=== PATIENT | female | born 1940 | race Caucasian/White ===

== ENCOUNTER 2017-03-27 18:52 | Inpatient (IN) | payer MEDICARE ==
[2017-03-27 20:20] LABS: BASOPHILS 0.3 % (0.0-2.0); EOSINOPHILS 2.1 % (0.0-6.0); EOSINOPHILS# 0.2 X 10^3uL (0.0-0.4); HEMATOCRIT 36.9 % (36.0-48.0); HEMOGLOBIN 12.1 g/dL (12.0-16.0); LYMPHOCYTES 7.8 % (20.0-40.0); LYMPHOCYTES# 0.8 X 10^3uL (0.8-3.8); MEAN CELL VOLUME 82.3 fL (80.0-100.0); MEAN CORPUS. HGB CONCENTRATION 32.8 g/dL (32.0-36.0); MEAN PLATELET VOLUME 6.7 fL (7.4-10.4); MONOCYTES 5.7 % (2.0-10.0); MONOCYTES# 0.6 X 10^3uL (0.2-1.0); NEUTROPHILS 84.1 % (54.0-75.0); NEUTROPHILS# 8.7 X 10^3uL (2.6-6.7); PLATELET COUNT 520 X 10^3uL (130-440); RED BLOOD COUNT 4.49 X 10^6uL (4.20-6.10); RED CELL DISTRIBUTION WIDTH 13.3 % (11.5-14.5); WHITE BLOOD COUNT 10.3 X 10^3uL (3.9-10.7)
[2017-03-27] MEDS ORDERED: ceFAZolin 1 GM/10 ML VIAL ONE (20:27)
[2017-03-27] MEDS ORDERED: NORMAL SALINE ADDVANTAGE 100 ML IV ONE (20:29)
[2017-03-27 20:48] LABS: ALBUMIN 3.1 g/dL (3.5-5.0); ALKALINE PHOSPHATASE 52 U/L (38-126); ALT 27 U/L (9-52); AST 13 U/L (14-36); BILIRUBIN, TOTAL 0.3 mg/dL (0.2-1.3); BLOOD UREA NITROGEN 11 mg/dL (7-17); CALCIUM 8.7 mg/dL (8.4-10.2); CHLORIDE 100 mmol/L (98-107); CREATININE 0.5 mg/dL (0.5-1.0); EST GLOMERULAR FILTRATION RATE > 60 mL/min; GLUCOSE 92 mg/dL (70-100); POTASSIUM 4.4 mmol/L (3.5-5.1); SODIUM 133 mmol/L (137-145); TOTAL PROTEIN 5.9 g/dL (6.3-8.2)
[2017-03-27] MEDS ORDERED: HOME MEDICATION LIST NEEDED 1 EA EACH MISC ONE (20:48)
--- NOTE | 2017-03-27 21:43 | ER PHYSICIAN DOCUMENTATION ---
Physician Documentation [facility] Name:Yayo Prince Age:76 yrs Sex:Female :1940 Arrival Date:03/27/2017 Time:18:52 Bed1 Private MD: Rahul Siddiqui Disposition: 03/27/17 20:45 Admit ordered for Sincere Pimentel. Preliminary diagnosis are Cellulitis of Leg, Dependent Edema, Rheumatoid Arthritis. - Bed requested for Medical/Surgical. - Condition is Serious. - Problem is an acute exacerbation. - Symptoms have improved. 23 HR OBS No HPI: 03/27 20:40 This 76 yrs old Female presents to ER via Private Vehicle with complaints of sc erythema right leg. 20:40 The patient presents with pain, swelling, tenderness. The complaints affect the right sc leg and right calf. Context: The problem was sustained at home, resulted from chronic edema and difficult healing ulcers, increased weeping through skin and sudden onset today of warm erythema and tenderness. Onset: The symptom(s)/episode began/occurred today. Associated signs and symptoms: Pertinent positives: warmth, weakness. Treatment prior to arrival includes: no previous treatment. Historical: - Allergies: ACETAMINOPHEN; Arava; Ciprofloxacin; - Home Meds: 1. gabapentin 100 mg oral cap 3 caps 3 times per day 2. tramadol 50 mg oral tab 1 tab Q8H as needed 3. ketoprofen Oral 4. Klor-Con M20 20 mEq oral TbTQ 1 tab once daily 5. mirtazapine 15 mg oral tab 1 tab once daily 6. folic acid 1 mg oral tab 1 tab once daily 7. prednisone 2.5 mg oral tab 1 tab every 2 days 8. melatonin 2.5 mg oral chew - PMHx: THYROID PROBLEM; BLADDER PROLAPSE; CELIAC DISEASE; GLAUCOMA; NEUROPATHY; DEPRESSION; HYPOKALEMIA; DEMENTIA; GERD; OSTEOPENIA; RHEUMATOID ARTHRITIS; SJOGRENS DISEASE; - PSHx: Appendectomy; Hysterectomy; CATARACT; - Tetanus: unknown. - Ebola Screening: : Patient negative for fever greater than or equal to 101.5 degrees Fahrenheit, and additional compatible Ebola Virus Disease symptoms. Patient denies exposure to infectious person. Patient denies travel to an Ebola-affected area in the 21 days before illness onset. No symptoms or risks identified at this time. . - Immunization history: Flu Vaccine >1 year. - Social history: Smoking status: Patient states was never smoker of tobacco. ROS: 20:42 Constitutional: Negative for fever, chills, and weight loss. sc Eyes: Negative for injury, pain, redness, and discharge. ENT: Negative for injury, pain, and discharge. Neck: Negative for injury, pain, and swelling. Cardiovascular: Negative for chest pain, palpitations, and edema. Respiratory: Negative for shortness of breath, cough, wheezing, and pleuritic chest pain. Abdomen/GI: Negative for abdominal pain, nausea, vomiting, diarrhea, and constipation. Back: Negative for injury and pain. : Negative for injury, bleeding, discharge, and swelling. 20:42 Neuro: Negative for headache, weakness, numbness, tingling, and seizure. sc 20:42 MS/extremity: Positive for erythema, swelling, tenderness. 20:42 Skin: Positive for sacral ulcer as well. 20:42 Allergy/Immunology: Positive for joint pain. Exam: Head/Face: Normocephalic, atraumatic. Eyes: Pupils equal round and reactive to light, extra-ocular motions intact. Lids and lashes normal. Conjunctiva and sclera are non-icteric and not injected. Cornea within normal limits. Periorbital areas with no swelling, redness, or edema. Cardiovascular: Regular rate and rhythm with a normal S1 and S2. No gallops, murmurs, or rubs. Normal PMI, no JVD. No pulse deficits. Respiratory: Lungs have equal breath sounds bilaterally, clear to auscultation and percussion. No rales, rhonchi or wheezes noted. No increased work of breathing, no retractions or nasal flaring. Back: No spinal tenderness. No costovertebral tenderness. Full range of motion. 20:43 Neuro: Awake and alert, GCS 15, oriented to person, place, time, and situation. sc Cranial nerves II-XII grossly intact. Motor strength 5/5 in all extremities. Sensory grossly intact. Cerebellar exam normal. Normal gait. 20:43 Constitutional: The patient appears frail, lethargic. 20:43 Musculoskeletal/extremity: Extremities: grossly normal except: erythema, swelling, tenderness, swelling, tenderness, edema and weeping, ROM: intact in all extremities, Circulation is intact in all extremities. Sensation intact. Vital Signs: 19:07 BP 124 / 73; Pulse 91; Resp 18; Temp 98.1; Pulse Ox 96% on R/A; sc1 21:10 BP 132 / 82; Pulse 80; Resp 17; Pulse Ox 97% on R/A; Pain 6/10; rh 21:41 BP 125 / 75; Pulse 77; Resp 17; Pulse Ox 98% on R/A; Pain 9/10; rh MDM: 19:23 Patient medically screened. tn 20:44 Differential diagnosis: cellulitis and sacral ulcer and hypoalbuminemia and chronic sc severe RA. Data reviewed: vital signs, nurses notes, old medical records, lab test result(s), and as a result, I will admit patient, administer antibiotics. Counseling: I had a detailed discussion with the patient and/or guardian regarding: the historical points, exam findings, and any diagnostic results supporting the discharge/admit diagnosis, lab results, the need for further work-up and treatment in the hospital. 03/27 20:30 Order name: CBC AUTO DIF, MDIF/RMOR IF IND; Complete Time: 20:51 [facility] 03/27 20:39 Interpretation: Normal Except: NEUTROPHILS 84.1. tn 03/27 20:49 Order name: BASIC METABOLIC PANEL; Complete Time: 20:51 [facility] 03/27 20:51 Interpretation: Normal Except: SODIUM 133. tn 03/27 20:49 Order name: HEPATIC PANEL; Complete Time: 20:51 [facility] 03/27 20:51 Interpretation: Abnormal: ALBUMIN 3.1; TOTAL PROTEIN 5.9. tn 03/28 08:08 Order name: BASIC METABOLIC PANEL [facility] 03/28 08:08 Order name: IRON PANEL [facility] 03/28 08:13 Order name: CBC AUTO DIF, MDIF/RMOR IF IND [facility] 03/28 20:10 Order name: BLOOD CULTURE [facility] 03/28 20:10 Order name: BLOOD CULTURE [facility] 03/29 06:59 Order name: COMPREHENSIVE METABOLIC PANEL [facility] 03/29 06:59 Order name: PREALBUMIN [facility] 03/29 08:45 Order name: OCCULT BLOOD (1-3 SAMPLES) [facility] 03/29 10:06 Order name: CBC AUTO DIF, MDIF/RMOR IF IND [facility] 03/29 10:06 Order name: COMPREHENSIVE METABOLIC PANEL [facility] 03/29 10:06 Order name: PREALBUMIN [facility] 05/03 10:06 Order name: C-REACTIVE PROTEIN [facility] 03/29 10:18 Order name: ERYTHROCYTE SEDIMENTATION RATE [facility] 03/27 19:38 Order name: Iv Saline Lock; Complete Time: 20:04 tn 03/27 19:38 Order name: Urine Dip; Complete Time: 21:09 tn 03/27 20:56 Order name: ORTHO: 6" Rob Wrap; Complete Time: 21:09 tn Dispensed Medications: 20:55 Drug: ceFAZolin 1 grams; Route: IVPB; Site: left antecubital; 21:30 Follow up: IV Status: Completed infusion; IV Intake: 100ml 21:15 Drug: traMADol 50 mg; Route: PO; 21:40 Follow up: Response: No adverse reaction 21:41 Drug: Toradol 15 mg; Route: IVP; Site: left antecubital; 21:41 Follow up: Response: Medication administered at discharge. Point of Care Testing: Urine Dip: 21:02 pH: 7.0; ; Specific [place]: 1.020; Ketones: Negative; Glucose: Negative; Protein: em1 Negative; Leukocytes: Negative; Nitrite: Negative ; Blood: Negative; Bilirubin: Negative ; Urobilinogen: Normal Signatures: Patrica Garcia RN RN [facility] [place] Rahul Marie MD MD [facility] CountyPrabha browne
--- NOTE | 2017-03-27 21:43 | ER NURSING DOCUMENTATION ---
Nurse's Notes [facility] Name:Yayo Prince Age:76 yrs Sex:Female :1940 Arrival Date:03/27/2017 Time:18:52 Bed1 Private MD: Diagnosis:Cellulitis of Leg;Dependent Edema;Rheumatoid Arthritis Presentation: 03/27 19:00 Presenting complaint: Patient states: increasing redness and drainage from her right sc1 lower leg. This leg is being treated by a home health agency. There was a dressing on the wound and pt. has 3+ pitting edema to her right leg some redness over the lower half with ulcers that are not draining at this point. Transition of care: Home. Complicating Factors: There are no complicating factors for this patient. Notified ED Physician of Dr. Marie notified. 19:00 Acuity: MARTHA 3 sc1 19:00 Method Of Arrival: Private Vehicle [facility] [place] Triage Assessment: 19:07 General: Appears in no apparent distress, well developed, well nourished, well groomed, wv1 Behavior is cooperative, listless. Pain: Complains of pain in right calf and right Achilles. Historical: - Allergies: ACETAMINOPHEN; Arava; Ciprofloxacin; - Home Meds: 1. gabapentin 100 mg oral cap 3 caps 3 times per day 2. tramadol 50 mg oral tab 1 tab Q8H as needed 3. ketoprofen Oral 4. Klor-Con M20 20 mEq oral TbTQ 1 tab once daily 5. mirtazapine 15 mg oral tab 1 tab once daily 6. folic acid 1 mg oral tab 1 tab once daily 7. prednisone 2.5 mg oral tab 1 tab every 2 days 8. melatonin 2.5 mg oral chew - PMHx: THYROID PROBLEM; BLADDER PROLAPSE; CELIAC DISEASE; GLAUCOMA; NEUROPATHY; DEPRESSION; HYPOKALEMIA; DEMENTIA; GERD; OSTEOPENIA; RHEUMATOID ARTHRITIS; SJOGRENS DISEASE; - PSHx: Appendectomy; Hysterectomy; CATARACT; - Tetanus: unknown. - Ebola Screening: : Patient negative for fever greater than or equal to 101.5 degrees Fahrenheit, and additional compatible Ebola Virus Disease symptoms. Patient denies exposure to infectious person. Patient denies travel to an Ebola-affected area in the 21 days before illness onset. No symptoms or risks identified at this time. . - Immunization history: Flu Vaccine >1 year. - Social history: Smoking status: Patient states was never smoker of tobacco. Screenin:09 Infectious Disease Risk None. Abuse screen: Denies threats or abuse. Nutritional sc1 screening: No deficits noted. Vital Signs: 19:07 BP 124 / 73; Pulse 91; Resp 18; Temp 98.1; Pulse Ox 96% on R/A; sc1 21:10 BP 132 / 82; Pulse 80; Resp 17; Pulse Ox 97% on R/A; Pain 6/10; rh 21:41 BP 125 / 75; Pulse 77; Resp 17; Pulse Ox 98% on R/A; Pain 9/10; rh ED Course: 18:57 Patient arrived in ED. honorio 18:59 Patrica Garcia, RN is Primary Nurse. sc1 19:02 Triage completed. sc1 19:08 Rahul Marie MD is Attending Physician. wv 19:08 Notified ED Physician of patient's arrival and chief complaint. Dr. Marie notified. Arm sc1 band placed on Bed in low position Call Light in Reach Gowned HOB Elevated Side rails up x1. 19:31 Valuables Remains with patient. rh 19:57 Inserted saline lock: 20 gauge in left antecubital area and blood collected. em1 20:05 Accessed BLOOD CULTURES TAKEN ON LEFT AC VIA 20G IV. em1 20:06 Inserted 22G BUTTERFLY USED TO DRAW 2ND SET BLOOD CULTURES FROM RIGHT AC. DISCONTINUED em1 AFTER DRAW. 20:45 Sincere Pimentel MD is Admitting Physician. wv 20:45 Quick cath inserted 16 Fr. Specimen obtained. Returned clear yellow urine. Patient rh tolerated well. Administered Medications: 20:55 Drug: ceFAZolin 1 grams; Route: IVPB; Site: left antecubital; rh 21:30 Follow up: IV Status: Completed infusion; IV Intake: 100ml rh 21:15 Drug: traMADol 50 mg; Route: PO; rh 21:40 Follow up: Response: No adverse reaction rh 21:41 Drug: Toradol 15 mg; Route: IVP; Site: left antecubital; rh 21:41 Follow up: Response: Medication administered at discharge. Point of Care Testing: Urine Dip: 21:02 pH: 7.0; ; Specific [place]: 1.020; Ketones: Negative; Glucose: Negative; Protein: em1 Negative; Leukocytes: Negative; Nitrite: Negative ; Blood: Negative; Bilirubin: Negative ; Urobilinogen: Normal Intake: 21:30 IV: 100ml; Total: 100ml. Outcome: 20:45 Decision to Admit by Provider. wv 21:41 Admitted to Med/surg accompanied by nurse, via stretcher, with chart. 21:41 Condition: stable 21:41 Discharge Assessment: Patient awake and alert. 21:41 Discharge instructions given to patient, family, Instructed on need to admit 21:42 Patient left the ED. Signatures: Patrica Garcia RN RN sc1 Rahul Marie MD MD sc Brittney Victoria, Jose R Odell honorio [employer], [employer] em1 Prabha Mckoy
[2017-03-27] MEDS ORDERED: KETOROLAC TROMETHAMINE 30 MG/ML VIAL ONE (21:50)
[2017-03-27] MEDS ORDERED: traMADol HCL 50 MG TABLET PO ONE (23:00)
[2017-03-27] MEDS: MELATONIN 3 MG TABLET PO SCH ×2 (23:11→23:36)
[2017-03-27] MEDS: MIRTAZAPINE 15 MG TAB PO SCH ×2 (23:12→23:36)
[2017-03-27] MEDS: GABAPENTIN 300 MG CAPSULE PO SCH ×2 (23:12→23:36)
[2017-03-27] MEDS: predniSONE 10 MG TABLET PO SCH (23:12)
[2017-03-28] MEDS: traMADol HCL 50 MG TABLET PO PRN ×2 (04:03→10:25)
[2017-03-28] MEDS: FENTANYL 100 MCG/2 ML VIAL IV PRN ×2 (07:38→13:47)
[2017-03-28] MEDS ORDERED: NORMAL SALINE 1,000 ML IV SCH (08:00)
[2017-03-28 08:05] LABS: BLOOD UREA NITROGEN 9 mg/dL (7-17); CALCIUM 8.4 mg/dL (8.4-10.2); CHLORIDE 105 mmol/L (98-107); CREATININE 0.4 mg/dL (0.5-1.0); EST GLOMERULAR FILTRATION RATE > 60 mL/min; GLUCOSE 110 mg/dL (70-100); IRON 15 ug/dL (37-170); POTASSIUM 4.4 mmol/L (3.5-5.1); SODIUM 139 mmol/L (137-145)
[2017-03-28 08:11] LABS: BASOPHILS 0.1 % (0.0-2.0); EOSINOPHILS 0.1 % (0.0-6.0); HEMOGLOBIN 12.3 g/dL (12.0-16.0); LYMPHOCYTES 5.4 % (20.0-40.0); LYMPHOCYTES# 0.5 X 10^3uL (0.8-3.8); MEAN CELL VOLUME 82.6 fL (80.0-100.0); MEAN CORPUS. HGB CONCENTRATION 33.3 g/dL (32.0-36.0); MEAN CORPUSCULAR HEMOGLOBIN 27.5 pg (29.0-35.0); MEAN PLATELET VOLUME 6.8 fL (7.4-10.4); MONOCYTES# 0.3 X 10^3uL (0.2-1.0); NEUTROPHILS# 8.4 X 10^3uL (2.6-6.7); PLATELET COUNT 527 X 10^3uL (130-440); RED BLOOD COUNT 4.48 X 10^6uL (4.20-6.10); RED CELL DISTRIBUTION WIDTH 13.6 % (11.5-14.5); WHITE BLOOD COUNT 9.2 X 10^3uL (3.9-10.7)
[2017-03-28 08:12] LABS: TOTAL IRON BINDING CAPACITY 231 ug/mL (250-400); TRANSFERRIN 155 mg/dL (206-381); TRANSFERRIN SATURATION 6 % (14-50)
[2017-03-28 08:13] LABS: NEUTROPHILS 91.4 % (54.0-75.0)
[2017-03-28] MEDS: FERROUS SULFATE 325 MG TABLET PO SCH (08:58)
[2017-03-28] MEDS: predniSONE 10 MG TABLET PO SCH ×2 (08:58→20:49)
[2017-03-28] MEDS: ENOXAPARIN SODIUM 40 MG/0.4 ML SYR SUBCUT SCH (08:58)
[2017-03-28] MEDS ORDERED: GABAPENTIN 300 MG CAPSULE PO SCH (09:00)
--- NOTE | 2017-03-28 14:10 | HISTORY & PHYSICAL ---
DATE OF ADMISSION: 03/27/17 CHIEF COMPLAINT: Right leg pain. HISTORY OF PRESENT ILLNESS: The patient is a 76-year-old female with multiple chronic medical conditions followed by Dr. Elliott. She has a history of peripheral neuropathy in her bilateral lower extremities with intermittent swelling of the legs and chronic skin breakdown in the setting of protein malnutrition. Over the last few days, she states that her legs have had increased swelling and redness more on the right side than the left, with considerable increase in pain in the right leg diffusely but with more intensity on the posterior lower leg above the ankle. She denies any fevers or chills. She has not had any shaking chills. She has had more difficulty ambulating due to the pain but has not had any recent falls. No spreading or streaking redness. No discharge but some oozing and bleeding from her posterior right lower leg. With difficulty managing at home, she was brought into the emergency department by family yesterday and is now admitted for further evaluation and treatment of cellulitis. She has rheumatoid arthritis and is on prednisone and it sounds like this has recently been increased by her ornament setter to a dose of 10 mg daily. She has not had any recent antibiotics. She has not been recently hospitalized sense a fall resulting in a left femoral neck fracture in 10/2016 with subsequent rehabilitation stay. She has been back at home since November working with home health care. Of note, she suffers from a chronic sacral decubitus ulcer and has been receiving dressing changes with home health care for this, but it does not sound like the focus has been on her lower extremity wounds. She denies any headache or lightheadedness. No confusion per the patient, although she carries the diagnosis of dementia. She denies any chest pain or palpitations. No shortness of breath or cough. No abdominal pain or nausea. She denies any recent diarrhea. She denies any dysuria. She does have lower extremity swelling as indicated above with significant pain. A fair amount of scaling in her bilateral lower extremities and the skin breakdown in the posterior lower leg as above. With regard to management at home, she generally takes tramadol 2 times a day but has been unable to control the pain with this. She was written for a topical compounded cream which she has not been using. She does take gabapentin. Her chart indicates that she takes 300 mg at night although she thinks that she make take this twice per day. In the emergency department, she was found to have significant erythema in bilateral lower extremities, more on the right than the left, with evidence of skin breakdown on the right more than the left. She did not appear to be septic. She was admitted for further evaluation and treatment with IV antibiotics. PAST MEDICAL HISTORY 1. Celiac disease. 2. 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 3. Corneal scarring. 4. Decubitus ulcer of the buttock and sacral region on the left side. 5. Dementia. 6. Depression. 7. Dry eye syndrome. 8. Female bladder prolapse. 9. GERD. 10. 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 11. Hypokalemia. 12. History of keratitis with ulceration in association with rheumatoid arthritis. 13. Osteopenia. 14. Presbycusis. 15. Rheumatoid arthritis. 16. Sjogrens disease. 17. Chronic insomnia. 18. Unintentional weight loss. PAST SURGICAL HISTORY 1. Appendectomy. 2. Hysterectomy. 3. Cataract surgery. 4. Left hip ORIF in 10/2016. ALLERGIES: Acetaminophen with unknown reaction. Arava resulting in unknown reaction. Ciprofloxacin resulting in unknown reaction. MEDICATIONS Vitamin D3 1000 units p.o. daily. Folic acid 1 mg p.o. daily. Gabapentin 300 mg p.o. q.h.s. Compound cream with 20% ketoprofen, 2% baclofen, 2% cyclobenzaprine, 6% gabapentin, 2% lidocaine compounded into cream for use on hands and feet as needed for pain (says she is not using this). KCl 20 mEq p.o. daily. Melatonin 2.5 mg p.o. at bedtime. Mirtazapine 50 mg p.o. at bedtime. Prednisone with chart listing 2.5 mg every other day but the patient stating that she is actually taking 10 mg daily. Tramadol 50 mg p.o. q.8h p.r.n. pain (says she is taking this 2 times a day). SOCIAL HISTORY: Never smoker. No alcohol. No illicit drugs. Lives alone with daughter and son-in-law living near by and helping significantly with her at home. DNR status. FAMILY HISTORY: Significant for rheumatoid arthritis in one cousin, lung cancer and emphysema in her father, hypertension and fibromyalgia in her mother , and hypertension, OCD and alcoholism in her son. REVIEW OF SYSTEMS: Pertinent positives and negatives as above. Remainder are negative. PHYSICAL EXAMINATION VITAL SIGNS: Show a temperature of 36.1, with a blood pressure 154/81, pulse of 82, respirations 16, and she is 93% on room air at rest. GENERAL: Elderly, thin, frail, chronically ill appearing female. Is alert and interactive but very hard of hearing with poor memory. Does demonstrate a lack of understanding of her medication regimen. HEENT: Normocephalic/atraumatic. Sinuses are nontender. Pupils show evidence of prior cataract surgery but are reactive to light bilaterally. Extraocular muscles are intact with full range of motion. Oropharynx shows very dry mucous membranes. No lesions. NECK: Supple without lymphadenopathy or masses. No thyromegaly or nodules. CHEST: Mildly decreased breath sounds throughout with minimal bibasilar rales. No change in tactile fremitus. CARDIAC: Regular rate and rhythm. Soft S4. No S3. Do not hear a murmur. No JVD at 45 degrees. Has trace to 1+ pretibial pitting edema. ABDOMEN: Positive bowel sounds. Soft, nontender, nondistended. No hepatosplenomegaly. BACK: No costovertebral angle tenderness. EXTREMITIES: Acrocyanosis. Bilateral lower extremities are diffusely tender to palpation. I do not feel any cords. SKIN: Scattered ecchymoses. Bilateral lower extremities with considerable scaling diffusely with a large 4 cm eschar with thin eschar overlying the posterior lower leg above the ankle. Some weeping from this with serosanguineous discharge. No fluctuance. Diffusely tender to palpation. She has a small 3 mm eschar along the lateral aspect of her right ankle over the lateral malleolus. Finally, she has a longstanding sacral ulcer just to the left of midline with a 3 mm deep ulceration which appears to have tunneling. LYMPH: No cervical or supraclavicular lymphadenopathy. NEUROLOGIC: The patient is alert and interactive but forgetful. She knows her name and location. She is moving all 4 extremities but weakly. Light touch sensation is intact in face, torso and upper extremities with paresthesias in her bilateral lower extremities below the level of the knees. LABORATORY STUDIES: In the emergency department white blood count was 10.3 with hematocrit of 36.9 with an MCV of 82.3 and a platelet count of 520, 84% neutrophils. Chemistry panel showing a sodium mildly low at 133 with a potassium of 4.4. Her creatinine is 0.5. LFTs are normal with the exception of low protein of 5.9 and low albumin at 3.1. Blood cultures times 2 are pending. ASSESSMENT AND PLAN: 1. Cellulitis, bilateral lower extremities in the setting of immunocompromised. Last hospitalization was in November and no recent antibiotics making MRSA less likely. She does not appear septic. Cultures are ordered and pending. The patient has been started on cefazolin IV, and this is appropriate coverage for initial care. Will follow closely for any evidence of worsening and have a low threshold for broadening coverage considering her immunocompromised complex medical state. Considering degree of inflammation and pain in the setting of rheumatoid arthritis, will increase prednisone to 20 mg b.i.d. for now and plan to taper as she clinically improves. General support with IV fluid, encouraging oral intake of liquids and nutrition. Supplement with Ensure. Wound care consultation. Dressing changes daily. Elevate legs. Gentle compression if tolerated. Further recommendations will depend upon her course. Considering her overall debilitated state, will order for a physical therapy consult as well. With regard to other differential diagnosis items, this does not appear to be CHF decompensation. Doubt DVT with bilateral involvement, with skin breakdown, and with focal areas of erythema. Less likely vasculitis considering acute presentation. For pain management, she does not tolerate acetaminophen. Will continue with tramadol 4 times a day as needed. Fentanyl at very low dose for more severe pain. 2. Right lower extremity wound. See above. 3. Sacral decubitus ulcer. Present on admission. Currently has dressing in place from home health care. Wound care consult has been ordered and will continue with every day to every other day dressing changes. 4. Rheumatoid arthritis. Considerable debilitation in association with this. Physical therapy as above. General supportive care as above. Prednisone burst as above. 5. Sjogrens syndrome. Artificial Tears as needed. General supportive care. 6. Hyponatremia, mild, with evidence of dehydration on examination. Gentle IV fluids. Watch for worsening of edema. 7. Microcytosis with borderline anemia. Reassess in the morning. Check iron studies. 8. Dementia. Current presentation does not appear to be significantly off from her baseline. Follow clinically. 9. Peripheral neuropathy. Contributing to her bilateral lower extremity pain. Continue gabapentin. Other analgesia as above. 10. Vaccine status. The patient is a Jehovahs Witness and it sounds like has generally declined vaccinations. I will defer to her primary care physician Dr. Elliott. He may with to update tetanus status and pneumonia vaccine prior to discharge depending upon negotiation with the patient. 11. Cardiac resuscitation status. DNR. 12. DVT prophylaxis. High risk. Lovenox. 13. Disposition. Anticipate 2-3 days to control infection. Considering debilitating status, may need rehabilitation stay. Copy to Dr. Mcnamara, Rheumatology, [facility]
[2017-03-28] MEDS: MELATONIN 3 MG TABLET PO SCH (20:48)
[2017-03-28] MEDS: GABAPENTIN 300 MG CAPSULE PO SCH (20:49)
[2017-03-28] MEDS ORDERED: MIRTAZAPINE 15 MG TAB PO SCH (21:00)
[2017-03-29 06:46] LABS: A/G RATIO 0.9; ALBUMIN 2.5 g/dL (3.5-5.0); ALKALINE PHOSPHATASE 46 U/L (38-126); ALT 27 U/L (9-52); AST 14 U/L (14-36); BILIRUBIN, TOTAL 0.2 mg/dL (0.2-1.3); BLOOD UREA NITROGEN 15 mg/dL (7-17); CHLORIDE 106 mmol/L (98-107); CREATININE 0.4 mg/dL (0.5-1.0); EST GLOMERULAR FILTRATION RATE > 60 mL/min; GLUCOSE 112 mg/dL (70-100); POTASSIUM 4.1 mmol/L (3.5-5.1); SODIUM 140 mmol/L (137-145); TOTAL PROTEIN 5.3 g/dL (6.3-8.2)
[2017-03-29 06:49] LABS: BASOPHILS 0.1 % (0.0-2.0); EOSINOPHILS 0.1 % (0.0-6.0); HEMATOCRIT 36.5 % (36.0-48.0); HEMOGLOBIN 11.8 g/dL (12.0-16.0); LYMPHOCYTES 4.8 % (20.0-40.0); LYMPHOCYTES# 0.6 X 10^3uL (0.8-3.8); MEAN CELL VOLUME 82.2 fL (80.0-100.0); MEAN CORPUS. HGB CONCENTRATION 32.3 g/dL (32.0-36.0); MEAN CORPUSCULAR HEMOGLOBIN 26.6 pg (29.0-35.0); MONOCYTES 2.8 % (2.0-10.0); MONOCYTES# 0.4 X 10^3uL (0.2-1.0); NEUTROPHILS# 11.8 X 10^3uL (2.6-6.7); PLATELET COUNT 563 X 10^3uL (130-440); RED BLOOD COUNT 4.44 X 10^6uL (4.20-6.10); RED CELL DISTRIBUTION WIDTH 13.6 % (11.5-14.5); WHITE BLOOD COUNT 12.8 X 10^3uL (3.9-10.7)
[2017-03-29 07:02] LABS: NEUTROPHILS 92.2 % (54.0-75.0)
[2017-03-29] MEDS: predniSONE 10 MG TABLET PO SCH (08:46)
[2017-03-29] MEDS: ENOXAPARIN SODIUM 40 MG/0.4 ML SYR SUBCUT SCH (08:46)
[2017-03-29] MEDS: FERROUS SULFATE 325 MG TABLET PO SCH (08:46)
[2017-03-29] MEDS: traMADol HCL 50 MG TABLET PO PRN ×3 (08:46→20:36)
--- NOTE | 2017-03-29 08:53 | PROGRESS NOTE: IM APSO ---
Assessment and Plan - Date of Encounter Date of Encounter: 03/29/17 (1) Axonal sensorimotor neuropathy Status: Chronic Assessment and plan: likely related to vasculitis and now ulceration very suggestive of vasculitis. consider biops (punch and request c/s with Dr. Ponce). In interim increase steroids from stress dose to pulse and check surrogate labs. Anemia of chronic inflammatory dz consistent with this. Trial of topical meds as well for analgesia. Current Visit: Yes (2) Cellulitis Status: Acute Assessment and plan: will continue therapy started by Dr. Pimentel, suspect most of this is vasculitis though Current Visit: Yes (3) Anemia in chronic illness Status: Acute Current Visit: Yes (4) Celiac disease Status: Chronic Current Visit: Yes (5) Rheumatoid arthritis Status: Chronic Current Visit: Yes (6) Weight loss Status: Chronic Current Visit: Yes - Time Spent With Patient Total time spent with greater than 50% in coordination of care (as documented) at patient's floor/unit and/or counseling patient: Greater than 35 minutes IM: PN Subjective General: fatigue, good appetite, no anxiety, no depression, no confusion, no fever, no chills Cardiovascular: no chest pain Respiratory: no cough Gastrointestinal: no abdominal pain, no nausea, no vomiting, no diarrhea, no constipation Musculoskeletal: pain Integumentary: wound Neurological: limb weakness, other (punched out appearing right lateral lower leg and exquisite pain both legs distal to knees to toes, some venous changes and edema) IM: PN Objective Exam - I&O/Vital Signs I&O: Intake & Output 03/28/17 03/29/17 03/29/17 21:59 05:59 13:59 Intake Total 1830 1380 Output Total 1550 225 Balance 280 1155 Weight 45.5 kg 46.5 kg Intake: IV 410 980 Left Forearm 410 980 Oral 1420 400 Output: Urine 1550 225 Other: Urine Appearance Clear Clear Urine Color Yellow Yellow Stool Size Small Stool Characteristics Soft Formed Brown Voiding Method Toilet Toilet # Voids 3 2 # Bowel Movements 2 Vital Signs: Last Vital Signs Temp 36.2 C L 03/29/17 06:25 Pulse 81 03/29/17 06:25 Resp 16 03/29/17 06:25 BP 139/70 03/29/17 06:25 Pulse Ox 94 03/29/17 06:25 Oxygen Delivery Method Room Air - Constitutional General appearance: Present: thin - Head Head exam: Present: atraumatic - Eye Eye exam: Present: EOMI - ENT ENT exam: Present: mucous membranes moist - Neck Neck exam: Present: full ROM. Absent: lymphadenopathy - Respiratory Respiratory exam: Present: CTAB - Cardiovascular Cardiovascular exam: Present: RRR - GI/Abdominal GI/Abdominal exam: Present: normal bowel sounds, soft. Absent: mass, tenderness - Extremities Exam Extremities exam: Present: calf tenderness (exquisite pain legs distal to knees with even light touch), edema (+), tenderness - Neurological Exam Neurological exam: Present: abnormal gait - Skin Skin exam: Present: erythema, other (punched out lesion) - Allied Health Notes Allied health notes reviewed: case management, nursing - Lab Labs: Laboratory Last Values WBC 12.8 X 10^3uL (3.9-10.7) H 03/29/17 06:05 RBC 4.44 X 10^6uL (4.20-6.10) 03/29/17 06:05 Hgb 11.8 g/dL (12.0-16.0) L 03/29/17 06:05 Hct 36.5 % (36.0-48.0) 03/29/17 06:05 MCV 82.2 fL (80.0-100.0) 03/29/17 06:05 MCH 26.6 pg (29.0-35.0) L 03/29/17 06:05 MCHC 32.3 g/dL (32.0-36.0) 03/29/17 06:05 RDW 13.6 % (11.5-14.5) 03/29/17 06:05 Plt Count 563 X 10^3uL (130-440) H 03/29/17 06:05 MPV 7.0 fL (7.4-10.4) L 03/29/17 06:05 Neutrophils % 92.2 % (54.0-75.0) H 03/29/17 06:05 Lymphocytes % 4.8 % (20.0-40.0) L 03/29/17 06:05 Eosinophils % 0.1 % (0.0-6.0) 03/29/17 06:05 Basophils % 0.1 % (0.0-2.0) 03/29/17 06:05 Neutrophils # 11.8 X 10^3uL (2.6-6.7) H 03/29/17 06:05 Lymphocytes # 0.6 X 10^3uL (0.8-3.8) L 03/29/17 06:05 Monocytes 2.8 % (2.0-10.0) 03/29/17 06:05 Monocytes # 0.4 X 10^3uL (0.2-1.0) 03/29/17 06:05 Eosinophils # 0.0 X 10^3uL (0.0-0.4) 03/29/17 06:05 Basophils # 0.0 X 10^3uL (0.0-0.1) 03/29/17 06:05 Sodium 140 mmol/L (137-145) 03/29/17 06:05 Potassium 4.1 mmol/L (3.5-5.1) 03/29/17 06:05 Chloride 106 mmol/L (98-107) 03/29/17 06:05 Carbon Dioxide 26 mmol/L (22-30) 03/29/17 06:05 BUN 15 mg/dL (7-17) D 03/29/17 06:05 Creatinine 0.4 mg/dL (0.5-1.0) L 03/29/17 06:05 GFR Calculation > 60 mL/min 03/29/17 06:05 Glucose 112 mg/dL (70-100) H 03/29/17 06:05 Calcium 8.0 mg/dL (8.4-10.2) L 03/29/17 06:05 Iron 15 ug/dL (37-170) L 03/28/17 07:40 TIBC 231 ug/mL (250-400) L 03/28/17 07:40 Transferrin 155 mg/dL (206-381) L 03/28/17 07:40 Transferrin % Sat 6 % (14-50) L 03/28/17 07:40 Total Bilirubin 0.2 mg/dL (0.2-1.3) 03/29/17 06:05 Direct Bilirubin 0.0 mg/dL (0.0-0.4) 03/27/17 19:59 AST 14 U/L (14-36) 03/29/17 06:05 ALT 27 U/L (9-52) 03/29/17 06:05 Alkaline Phosphatase 46 U/L (38-126) 03/29/17 06:05 Total Protein 5.3 g/dL (6.3-8.2) L 03/29/17 06:05 Albumin 2.5 g/dL (3.5-5.0) L 03/29/17 06:05 Albumin/Globulin Ratio 0.9 03/29/17 06:05 Prealbumin 7.2 mg/dL (17.6-36.0) L 03/29/17 06:05 Quality Questions - VTE Prophylaxis Assessment VTE Present on Admission?: No Patient at risk for venous thromboembolism?: Yes VTE Risk Level: Low Risk Pharmaceutical VTE prophylaxis contraindication reason: N/A- VTE prophylaxsis ordered Mechanical VTE prophylaxis contraindication reason: N/A- VTE prophylaxsis ordered
[2017-03-29 09:44] LABS: C-REACTIVE PROTEIN 44.9 mg/L (<10.0)
[2017-03-29] MEDS ORDERED: LIDOCAINE HCL 1% 20 ML VIAL SUBCUT SCH (09:45)
[2017-03-29] MEDS ORDERED: KETAMINE HCL 500 MG/10 ML VIAL IV SCH (10:00)
[2017-03-29] MEDS ORDERED: METHYLPREDNISOLONE SOD IV SCH (10:00)
[2017-03-29] MEDS ORDERED: NORMAL SALINE MINI IV SCH (10:00)
[2017-03-29] MEDS: NORMAL SALINE MINI IV SCH (10:05)
[2017-03-29] MEDS: METHYLPREDNISOLONE SOD IV SCH (10:05)
[2017-03-29 10:18] LABS: ERYTHROCYTE SEDIMENTATION RATE 24 MM/HR (0-20)
[2017-03-29] MEDS ORDERED: COLLAGENASE OINT 30 APP/30 GM TUBE TOPICAL SCH (11:00)
--- NOTE | 2017-03-29 15:26 | PROCEDURE NOTE: Gen Surgery ---
General Surgery Procedure Note - Date of Encounter Date of Encounter: 03/29/17 - Brief Operative Note (1) Cellulitis Date of procedure: 03/29/17 Pre-Op Diagnosis: Painful Ulcer, Right Lower Extremity Post-op diagnosis: same Procedure: Punch Biopsy x 2 of the ulcer margins Implants: none Anesthesia Type: Local Physician: CJ MCKEON Estimated Blood Loss: 3 (ml) Pathology: sent (punch biopsy posterior lower leg Ulcer, proximal and distal margins) X-ray taken: No Images viewed by surgeon: No Images viewed by radiologist: No Sponge and instrument counts: correct Condition: stable Disposition: floor Narrative: Pt seen in consultation for a painful chronic ulceration of the right posterior lower leg. She has a history of rheumatoid arthritis, and had some issues with pressure ulcers on the sacrum and on the lateral left foot, over the metatarsal head. She has had a partial and full thickness eschar and skin loss with significant hyperesthesia of the right lower and posterior leg for at least 2 weeks, and I was consulted to obtain tissue for histology to diagnose possible vasculitis as a source. After informed verbal consent, the ulcer and leg were prepped sterilely. The local anesthesia consisting of 1% lidocaine was injected into a distal lateral margin and proximal margin of the ulcer site. Once adequate analgesia was obtained, a punch biopsy device aided with the scalpel was used to take a full thickness skin biopsy. These were sent for pathology. The wounds were noted to have some venous oozing, but were not particularly vascular. The wounds were closed wtih a single horizontal mattress suture of 3-0 monocryl suture at each. This did approximate and make hemostatic the wounds, and the suture will resorb and given the patients state are likely to simply become part of the wound. The wound care was performed by nursing to dress and wrap the leg, and the procedure was adequately well tolerated. The biopsy results will return to Dr. Abarca and Dr. Rahul Ponce.
[2017-03-29] MEDS: [UNRECOGNIZED DRUG - OTHER] TOPICAL SCH ×2 (17:08→20:35)
[2017-03-29] MEDS: GABAPENTIN 300 MG CAPSULE PO SCH (20:35)
[2017-03-29] MEDS: MELATONIN 3 MG TABLET PO SCH (20:35)
[2017-03-29] MEDS: MIRTAZAPINE 15 MG TAB PO SCH (20:35)
[2017-03-30] MEDS: traMADol HCL 50 MG TABLET PO PRN (06:16)
[2017-03-30 06:34] LABS: A/G RATIO 0.9; ALBUMIN 2.6 g/dL (3.5-5.0); ALKALINE PHOSPHATASE 43 U/L (38-126); ALT 27 U/L (9-52); AST 15 U/L (14-36); BILIRUBIN, TOTAL 0.2 mg/dL (0.2-1.3); BLOOD UREA NITROGEN 16 mg/dL (7-17); CALCIUM 8.3 mg/dL (8.4-10.2); CHLORIDE 105 mmol/L (98-107); CREATININE 0.4 mg/dL (0.5-1.0); EST GLOMERULAR FILTRATION RATE > 60 mL/min; GLUCOSE 111 mg/dL (70-100); POTASSIUM 4.1 mmol/L (3.5-5.1); SODIUM 137 mmol/L (137-145); TOTAL PROTEIN 5.5 g/dL (6.3-8.2)
[2017-03-30 06:47] LABS: BAND% (Manual) 7 % (0.0-1.0); LYMPHOCYTE % (Manual) 6 % (20.0-40.0); MONOCYTE % (Manual) 2 % (2.0-10.0); NEUTROPHIL % (Manual) 85 % (54.0-75.0)
[2017-03-30 06:49] LABS: PLATELET ESTIMATE INCREASED
[2017-03-30 06:50] LABS: HEMATOCRIT 35.5 % (36.0-48.0); HEMOGLOBIN 10.9 g/dL (12.0-16.0); MEAN CELL VOLUME 82.4 fL (80.0-100.0); MEAN CORPUS. HGB CONCENTRATION 30.9 g/dL (32.0-36.0); MEAN CORPUSCULAR HEMOGLOBIN 25.4 pg (29.0-35.0); MEAN PLATELET VOLUME 6.7 fL (7.4-10.4); PLATELET COUNT 540 X 10^3uL (130-440); RED BLOOD COUNT 4.31 X 10^6uL (4.20-6.10); RED CELL DISTRIBUTION WIDTH 13.3 % (11.5-14.5); WHITE BLOOD COUNT 11.4 X 10^3uL (3.9-10.7)
[2017-03-30] MEDS ORDERED: LIDOCAINE HCL/PF 4% 5 ML AMP TOPICAL PRN (08:48)
[2017-03-30] MEDS ORDERED: LIDOCAINE HCL 5% OINT 35 APP/35.44 GM TUBE TOPICAL ONE (08:57)
--- NOTE | 2017-03-30 09:03 | PROGRESS NOTE: IM APSO ---
Assessment and Plan - Date of Encounter Date of Encounter: 03/30/17 (1) Axonal sensorimotor neuropathy Status: Chronic Assessment and plan: likely related to vasculitis and now ulceration very suggestive of vasculitis. consider biops (punch and request c/s with Dr. Ponce). In interim increase steroids from stress dose to pulse and check surrogate labs. Anemia of chronic inflammatory dz consistent with this. Trial of topical meds as well for analgesia. Current Visit: Yes (2) Cellulitis Status: Acute Assessment and plan: will continue therapy started by Dr. Pimentel, suspect most of this is vasculitis though and has improved some with high dose steroid, will need to consider DMARD changes as well. Current Visit: Yes (3) Anemia in chronic illness Status: Acute Current Visit: Yes (4) Celiac disease Status: Chronic Current Visit: Yes (5) Rheumatoid arthritis Status: Chronic Current Visit: Yes (6) Weight loss Status: Chronic Current Visit: Yes (7) Protein calorie malnutrition Status: Acute Assessment and plan: f/u surrogate markers, address nutrition Current Visit: Yes - Time Spent With Patient Total time spent with greater than 50% in coordination of care (as documented) at patient's floor/unit and/or counseling patient: IM: PN Subjective General: fatigue, good appetite, no anxiety, no depression, no confusion, no fever, no chills Cardiovascular: no chest pain Respiratory: no cough Gastrointestinal: no abdominal pain, no nausea, no vomiting, no diarrhea, no constipation Musculoskeletal: pain Integumentary: wound Neurological: limb weakness, other (Pain a little better today, edema and redness almost abated. Elavil/ketamine ointment pending, appreciate Surgery biopsing lesion. Malnourished and eating better now.) IM: PN Objective Exam - I&O/Vital Signs I&O: Intake & Output 03/29/17 03/30/17 03/30/17 21:59 05:59 13:59 Intake Total 898 250 Output Total 520 180 Balance 378 70 Weight 46.5 kg Intake: Oral 898 250 Output: Urine 520 180 Other: Urine Appearance Clear Clear Urine Color Yellow Yellow Stool Size Moderate Small Stool Characteristics Formed Formed Hard Brown Voiding Method Toilet # Voids 1 # Bowel Movements 1 1 Vital Signs: Last Vital Signs Temp 36.4 C 03/30/17 06:32 Pulse 79 03/30/17 06:32 Resp 14 03/30/17 06:32 BP 145/81 03/30/17 06:32 Pulse Ox 95 03/30/17 06:32 Oxygen Delivery Method Room Air - Constitutional General appearance: Present: thin - Head Head exam: Present: atraumatic - Eye Eye exam: Present: EOMI - ENT ENT exam: Present: mucous membranes moist - Neck Neck exam: Present: full ROM. Absent: lymphadenopathy - Respiratory Respiratory exam: Present: CTAB - Cardiovascular Cardiovascular exam: Present: RRR - GI/Abdominal GI/Abdominal exam: Present: normal bowel sounds, soft. Absent: mass, tenderness - Extremities Exam Extremities exam: Present: calf tenderness (exquisite pain legs distal to knees with even light touch), edema (+), tenderness - Neurological Exam Neurological exam: Present: abnormal gait - Skin Skin exam: Present: erythema, other (punched out lesion right lower leg less erythema and ?tenderness, ydorcolloid and telfa, for sacral decubes Santyl to eschar and medihoney to deep tunnelled lesion, some is pressure related asome is likely vasculitic and confounded by malnutrtiion) - Allied Health Notes Allied health notes reviewed: case management, nursing - Lab Labs: Laboratory Last Values WBC 11.4 X 10^3uL (3.9-10.7) H 03/30/17 06:05 RBC 4.31 X 10^6uL (4.20-6.10) 03/30/17 06:05 Hgb 10.9 g/dL (12.0-16.0) L 03/30/17 06:05 Hct 35.5 % (36.0-48.0) L 03/30/17 06:05 MCV 82.4 fL (80.0-100.0) 03/30/17 06:05 MCH 25.4 pg (29.0-35.0) L 03/30/17 06:05 MCHC 30.9 g/dL (32.0-36.0) L 03/30/17 06:05 RDW 13.3 % (11.5-14.5) 03/30/17 06:05 Plt Count 540 X 10^3uL (130-440) H 03/30/17 06:05 MPV 6.7 fL (7.4-10.4) L 03/30/17 06:05 Total Counted 100 03/30/17 06:05 Neutrophils % 92.2 % (54.0-75.0) H 03/29/17 06:05 Neutrophils % (Manual) 85 % (54.0-75.0) H 03/30/17 06:05 Band Neuts % (Manual) 7 % (0.0-1.0) H 03/30/17 06:05 Lymphocytes % 4.8 % (20.0-40.0) L 03/29/17 06:05 Lymphocytes % (Manual) 6 % (20.0-40.0) L 03/30/17 06:05 Monocytes % (Manual) 2 % (2.0-10.0) 03/30/17 06:05 Eosinophils % 0.1 % (0.0-6.0) 03/29/17 06:05 Basophils % 0.1 % (0.0-2.0) 03/29/17 06:05 Neutrophils # 11.8 X 10^3uL (2.6-6.7) H 03/29/17 06:05 Lymphocytes # 0.6 X 10^3uL (0.8-3.8) L 03/29/17 06:05 Monocytes 2.8 % (2.0-10.0) 03/29/17 06:05 Monocytes # 0.4 X 10^3uL (0.2-1.0) 03/29/17 06:05 Eosinophils # 0.0 X 10^3uL (0.0-0.4) 03/29/17 06:05 Basophils # 0.0 X 10^3uL (0.0-0.1) 03/29/17 06:05 Platelet Estimate Increased 03/30/17 06:05 ESR 24 MM/HR (0-20) H 03/29/17 06:05 Sodium 137 mmol/L (137-145) 03/30/17 06:05 Potassium 4.1 mmol/L (3.5-5.1) 03/30/17 06:05 Chloride 105 mmol/L (98-107) 03/30/17 06:05 Carbon Dioxide 26 mmol/L (22-30) 03/30/17 06:05 BUN 16 mg/dL (7-17) 03/30/17 06:05 Creatinine 0.4 mg/dL (0.5-1.0) L 03/30/17 06:05 GFR Calculation > 60 mL/min 03/30/17 06:05 Glucose 111 mg/dL (70-100) H 03/30/17 06:05 Calcium 8.3 mg/dL (8.4-10.2) L 03/30/17 06:05 Iron 15 ug/dL (37-170) L 03/28/17 07:40 TIBC 231 ug/mL (250-400) L 03/28/17 07:40 Transferrin 155 mg/dL (206-381) L 03/28/17 07:40 Transferrin % Sat 6 % (14-50) L 03/28/17 07:40 Total Bilirubin 0.2 mg/dL (0.2-1.3) 03/30/17 06:05 Direct Bilirubin 0.0 mg/dL (0.0-0.4) 03/27/17 19:59 AST 15 U/L (14-36) 03/30/17 06:05 ALT 27 U/L (9-52) 03/30/17 06:05 Alkaline Phosphatase 43 U/L (38-126) 03/30/17 06:05 C-Reactive Protein 44.9 mg/L (<10.0) H 03/29/17 06:05 Total Protein 5.5 g/dL (6.3-8.2) L 03/30/17 06:05 Albumin 2.6 g/dL (3.5-5.0) L 03/30/17 06:05 Albumin/Globulin Ratio 0.9 03/30/17 06:05 Prealbumin 10.1 mg/dL (17.6-36.0) L 03/30/17 06:05
[2017-03-30] MEDS: [UNRECOGNIZED DRUG - OTHER] TOPICAL SCH ×3 (09:22→20:39)
[2017-03-30] MEDS: FERROUS SULFATE 325 MG TABLET PO SCH (09:53)
[2017-03-30] MEDS: PRENATAL VIT/FE FUMARATE/FA 1 TAB TABLET PO SCH (09:53)
[2017-03-30] MEDS: ENOXAPARIN SODIUM 40 MG/0.4 ML SYR SUBCUT SCH (09:54)
[2017-03-30] MEDS: NORMAL SALINE MINI IV SCH (10:29)
[2017-03-30] MEDS: METHYLPREDNISOLONE SOD IV SCH ×2 (10:29→11:33)
[2017-03-30] MEDS: NORMAL SALINE IV SCH (11:33)
[2017-03-30] MEDS: COLCHICINE 0.6 MG TABLET PO SCH (17:51)
[2017-03-30] MEDS: GABAPENTIN 300 MG CAPSULE PO SCH (20:42)
[2017-03-30] MEDS: MIRTAZAPINE 15 MG TAB PO SCH (20:42)
[2017-03-30] MEDS: MELATONIN 3 MG TABLET PO SCH (20:42)
[2017-03-31] MEDS ORDERED: DAPSONE PO SCH (09:00)
--- NOTE | 2017-03-31 09:01 | PROGRESS NOTE: IM APSO ---
Assessment and Plan - Date of Encounter Date of Encounter: 03/31/17 (1) Axonal sensorimotor neuropathy Status: Chronic Assessment and plan: likely related to vasculitis and now ulceration very suggestive of vasculitis. Punch biopsy still pending but empirically started Dapsone and colchicine and could stop if bx negative. CCP pending supspect will be elevated. In interim increase steroids from stress dose to pulse and check surrogate labs. Anemia of chronic inflammatory dz consistent with this. Trial of topical meds as well for analgesia. Swing bed Current Visit: Yes (2) Cellulitis Status: Acute Assessment and plan: Suspect most of this is vasculitis though and has improved some with high dose steroid, will need to consider DMARD changes as well. Current Visit: Yes (3) Anemia in chronic illness Status: Chronic Current Visit: Yes (4) Celiac disease Status: Chronic Current Visit: Yes (5) Rheumatoid arthritis Status: Chronic Current Visit: Yes (6) Weight loss Status: Chronic Current Visit: Yes (7) Protein calorie malnutrition Status: Acute Assessment and plan: f/u surrogate markers, address nutrition Current Visit: Yes - Time Spent With Patient Total time spent with greater than 50% in coordination of care (as documented) at patient's floor/unit and/or counseling patient: Greater than 35 minutes IM: PN Subjective General: fatigue (limited by pain and fatigue for mobility), good appetite ( eating breakfast well this morning), no anxiety, no depression, no confusion, no fever, no chills Cardiovascular: no chest pain Respiratory: no cough Gastrointestinal: no abdominal pain, no nausea, no vomiting, no diarrhea, no constipation Musculoskeletal: pain (bilateral lower legs worse right around vasculitic appearing ulceration) Integumentary: wound Neurological: limb weakness, other (biopsy site with sutures, looks better, less redness/swelling.) IM: PN Objective Exam - I&O/Vital Signs I&O: Intake & Output 03/30/17 03/31/17 03/31/17 21:59 05:59 13:59 Intake Total 1267 450 Output Total 950 420 Balance 317 30 Weight 48.5 kg Intake: Oral 1267 450 Output: Urine 950 420 Other: Urine Appearance Clear Clear Urine Color Yellow Yellow Stool Size Large Stool Characteristics Soft Formed Brown Voiding Method Toilet Toilet # Voids 1 # Bowel Movements 1 Vital Signs: Last Vital Signs Temp 36.6 C 03/31/17 06:40 Pulse 78 03/31/17 06:40 Resp 18 03/31/17 06:40 BP 136/74 03/31/17 06:40 Pulse Ox 97 03/31/17 06:40 Oxygen Delivery Method Room Air - Constitutional General appearance: Present: thin - Head Head exam: Present: atraumatic - Eye Eye exam: Present: EOMI - ENT ENT exam: Present: mucous membranes moist - Neck Neck exam: Present: full ROM. Absent: lymphadenopathy - Respiratory Respiratory exam: Present: CTAB - Cardiovascular Cardiovascular exam: Present: RRR - GI/Abdominal GI/Abdominal exam: Present: normal bowel sounds, soft. Absent: mass, tenderness - Extremities Exam Extremities exam: Present: calf tenderness (exquisite pain legs distal to knees with even light touch), edema (+), tenderness - Neurological Exam Neurological exam: Present: abnormal gait - Skin Skin exam: Present: erythema, other (punched out lesion right lower leg less erythema and ?tenderness, ydorcolloid and telfa, for sacral decubes Santyl to eschar and medihoney to deep tunnelled lesion, some is pressure related asome is likely vasculitic and confounded by malnutrtiion) - Allied Health Notes Allied health notes reviewed: case management, nursing - Lab Labs: Laboratory Last Values WBC 11.4 X 10^3uL (3.9-10.7) H 03/30/17 06:05 RBC 4.31 X 10^6uL (4.20-6.10) 03/30/17 06:05 Hgb 10.9 g/dL (12.0-16.0) L 03/30/17 06:05 Hct 35.5 % (36.0-48.0) L 03/30/17 06:05 MCV 82.4 fL (80.0-100.0) 03/30/17 06:05 MCH 25.4 pg (29.0-35.0) L 03/30/17 06:05 MCHC 30.9 g/dL (32.0-36.0) L 03/30/17 06:05 RDW 13.3 % (11.5-14.5) 03/30/17 06:05 Plt Count 545 X 10^3uL (130-440) H 03/31/17 05:58 MPV 6.7 fL (7.4-10.4) L 03/30/17 06:05 Total Counted 100 03/30/17 06:05 Neutrophils % 92.2 % (54.0-75.0) H 03/29/17 06:05 Neutrophils % (Manual) 85 % (54.0-75.0) H 03/30/17 06:05 Band Neuts % (Manual) 7 % (0.0-1.0) H 03/30/17 06:05 Lymphocytes % 4.8 % (20.0-40.0) L 03/29/17 06:05 Lymphocytes % (Manual) 6 % (20.0-40.0) L 03/30/17 06:05 Monocytes % (Manual) 2 % (2.0-10.0) 03/30/17 06:05 Eosinophils % 0.1 % (0.0-6.0) 03/29/17 06:05 Basophils % 0.1 % (0.0-2.0) 03/29/17 06:05 Neutrophils # 11.8 X 10^3uL (2.6-6.7) H 03/29/17 06:05 Lymphocytes # 0.6 X 10^3uL (0.8-3.8) L 03/29/17 06:05 Monocytes 2.8 % (2.0-10.0) 03/29/17 06:05 Monocytes # 0.4 X 10^3uL (0.2-1.0) 03/29/17 06:05 Eosinophils # 0.0 X 10^3uL (0.0-0.4) 03/29/17 06:05 Basophils # 0.0 X 10^3uL (0.0-0.1) 03/29/17 06:05 Platelet Estimate Increased 03/30/17 06:05 ESR 24 MM/HR (0-20) H 03/29/17 06:05 Sodium 137 mmol/L (137-145) 03/30/17 06:05 Potassium 4.1 mmol/L (3.5-5.1) 03/30/17 06:05 Chloride 105 mmol/L (98-107) 03/30/17 06:05 Carbon Dioxide 26 mmol/L (22-30) 03/30/17 06:05 BUN 16 mg/dL (7-17) 03/30/17 06:05 Creatinine 0.4 mg/dL (0.5-1.0) L 03/30/17 06:05 GFR Calculation > 60 mL/min 03/30/17 06:05 Glucose 111 mg/dL (70-100) H 03/30/17 06:05 Calcium 8.3 mg/dL (8.4-10.2) L 03/30/17 06:05 Iron 15 ug/dL (37-170) L 03/28/17 07:40 TIBC 231 ug/mL (250-400) L 03/28/17 07:40 Transferrin 155 mg/dL (206-381) L 03/28/17 07:40 Transferrin % Sat 6 % (14-50) L 03/28/17 07:40 Total Bilirubin 0.2 mg/dL (0.2-1.3) 03/30/17 06:05 Direct Bilirubin 0.0 mg/dL (0.0-0.4) 03/27/17 19:59 AST 15 U/L (14-36) 03/30/17 06:05 ALT 27 U/L (9-52) 03/30/17 06:05 Alkaline Phosphatase 43 U/L (38-126) 03/30/17 06:05 C-Reactive Protein 44.9 mg/L (<10.0) H 03/29/17 06:05 Total Protein 5.5 g/dL (6.3-8.2) L 03/30/17 06:05 Albumin 2.6 g/dL (3.5-5.0) L 03/30/17 06:05 Albumin/Globulin Ratio 0.9 03/30/17 06:05 Prealbumin 10.1 mg/dL (17.6-36.0) L 03/30/17 06:05
[2017-03-31] MEDS: COLCHICINE 0.6 MG TABLET PO SCH (09:03)
[2017-03-31] MEDS: PRENATAL VIT/FE FUMARATE/FA 1 TAB TABLET PO SCH (09:04)
[2017-03-31] MEDS: FERROUS SULFATE 325 MG TABLET PO SCH (09:04)
[2017-03-31] MEDS: ENOXAPARIN SODIUM 40 MG/0.4 ML SYR SUBCUT SCH (09:05)
[2017-03-31] MEDS: METHYLPREDNISOLONE SOD IV SCH (09:30)
[2017-03-31] MEDS: NORMAL SALINE IV SCH (09:30)
[2017-03-31 10:53] VITALS: RESP 20
[2017-03-31] MEDS ORDERED: DAPSONE 25 MG TABLET PO SCH (12:00)
[2017-03-31] MEDS: traMADol HCL 50 MG TABLET PO PRN (12:16)
--- NOTE | 2017-03-31 13:29 | DC SUMMARY: IM Note ---
Discharge Summary: IM/Peds Provider: Date of Admission: 03/27/17 Admitting Provider: DAWOOD PARTIDA MD Attending Provider: RICK HADDAD Discharging Provider: RICK HADDAD Primary Care Provider: Discharge Date: 03/31/17 Consults: 03/29/17 09:01 Surgical Consult [CONS] Routine Reason: please consider biopsy of ulceration right lower leg for vasculitis - Diagnosis (1) Axonal sensorimotor neuropathy Status: Chronic (2) Cellulitis Status: Acute (3) Anemia in chronic illness Status: Chronic (4) Celiac disease Status: Chronic (5) Rheumatoid arthritis Status: Chronic (6) Weight loss Status: Chronic (7) Protein calorie malnutrition Status: Acute - Time Spent with Patient Total time spent providing and/or coordinating discharge services: Discharge Overall discharge status: patient is progressing back to baseline Disposition: [facility] SWING BED Discharge Summary Data - Medication History Medication History: Home Medications Cholecalciferol [Vitamin D*] 1,000 unit PO DAILY 03/28/17 Diclofenac 1% Gel [Voltaren Top Gel 1%*] 1 gm TOPICAL QID PRN 03/28/17 Gabapentin [Neurontin*] 300 mg PO HS 03/28/17 Melatonin [Melatonin*] 3 mg PO HS 03/28/17 Potassium Chloride ER [K-Dur*] 1 tab PO DAILY 03/28/17 predniSONE [Deltasone*] 7.5 mg PO DAILY 03/28/17 traMADol HCL [Ultram*] 50 mg PO Q6H PRN 03/28/17 Colchicine [Colcrys*] 0.6 mg PO DAILY 03/31/17 Collagenase Oint [Santyl Oint*] 1 kylee TOPICAL PRN PRN 03/31/17 Dapsone [Dapsone*] 150 mg PO DAILY 03/31/17 Enoxaparin Sodium [LOVENOX 40mg/0.4mL*] 40 mg SUBCUT DAILY 03/31/17 Fentanyl [Sublimaze*] 12.5 mcg IV Q4H PRN 03/31/17 Ferrous Sulfate [Ferrous Sulfate*] 1 tab PO DAILY 03/31/17 Lidocaine HCl 1% [Xylocaine 1%*] 5 mg SUBCUT DIRECTED 03/31/17 Lidocaine HCl/Pf 4% [Xylocaine 4%*] 5 ml TOPICAL PRN PRN 03/31/17 Methylprednisolone Sod Succ/Pf [Solu-Medrol 1,000 mg Vial] 1,000 mg IV DAILY 04/12 Mirtazapine [Mirtazapine*] 30 mg PO HS 03/31/17 Non-Formulary Medication 1 kylee TOPICAL TID 03/31/17 Vit/Fe Fumarate/FA [ Rx*] 1 tab PO DAILY 03/31/17 predniSONE [Deltasone*] 20 mg PO DAILY 03/31/17 Inpatient Medications 03/27/17 22:57 Fentanyl [Sublimaze] 12.5 mcg IV Q4H PRN 03/28/17 09:00 Enoxaparin Sodium [Lovenox] 40 mg SUBCUT DAILY Ferrous Sulfate 325 mg PO DAILY 03/28/17 21:00 Gabapentin [Neurontin] 300 mg PO HS Melatonin 3 mg PO HS 03/29/17 09:03 Mirtazapine [Remeron] 30 mg PO HS 03/29/17 09:45 Lidocaine HCl 1% [Xylocaine 1%] 5 ml SUBCUT DIRECTED 03/29/17 11:00 Collagenase Oint [Santyl Oint] 1 kylee TOPICAL PRN 03/29/17 15:00 Non-Formulary Medication 1 TOPICAL TID 03/30/17 08:48 Lidocaine HCl/Pf 4% [Xylocaine 4%] 5 ml TOPICAL PRN PRN 03/30/17 09:00 Vit/Fe Fumarate/FA [ Rx 1] 1 tab PO DAILY 03/30/17 17:00 Colchicine [Colcrys] 0.6 mg PO DAILY 03/31/17 12:00 Dapsone 150 mg PO DAILY 04/01/17 09:00 predniSONE [Deltasone] 20 mg PO DAILY Procedures and tests throughout hospitalization: Completed Lab Orders 03/28/17 07:40 BASIC METABOLIC PANEL [CHEM] Stat CBC AUTO DIF, MDIF/RMOR IF IND [HEM] Stat IRON PANEL [CHEM] Stat 03/29/17 06:05 C-REACTIVE PROTEIN [CHEM] Routine CBC AUTO DIF, MDIF/RMOR IF IND [HEM] AMDRAW ERYTHROCYTE SEDIMENTATION RATE [HEM] Routine PREALBUMIN [CHEM] AMDRAW cmp [COMPREHENSIVE METABOLIC PANEL] [CHEM] AMDRAW 03/30/17 06:05 CBC W/ MANUAL DIFFERENTIAL [HEM] Routine COMPREHENSIVE METABOLIC PANEL [CHEM] AMDRAW PREALBUMIN [CHEM] AMDRAW 03/31/17 05:58 PLATELET COUNT [HEM] LABQ2D Completed Microbiology Orders 03/29/17 08:15 Hemoccult [OCCULT BLOOD (1-3 SAMPLES)] [RM] Pending Orders 03/27/17 22:57 Fentanyl [Sublimaze] 12.5 mcg IV Q4H PRN 03/28/17 08:01 Ensure Plus Supplement TID 03/28/17 08:03 VTE Prophylaxis Scoring/ Ordering Routine 03/28/17 08:21 Wound Evaluation [WOUND] . pt [Physical Therapy Eval and Treatment] [PT] Routine 03/28/17 09:00 Enoxaparin Sodium [Lovenox] 40 mg SUBCUT DAILY Ferrous Sulfate 325 mg PO DAILY 03/28/17 21:00 Gabapentin [Neurontin] 300 mg PO HS Melatonin 3 mg PO HS 03/28/17 Breakfast Gluten Free 03/29/17 06:00 ANTI NUCLEAR ANTIBODY [SEND] Routine CYCLIC CITRULLINATED PEPT AB [SEND] Routine 03/29/17 09:01 Surgical Consult [CONS] Routine 03/29/17 09:03 Mirtazapine [Remeron] 30 mg PO HS 03/29/17 09:04 Beneprotein Supplement DAILY Ensure Enlive (Clear) Suppl . 03/29/17 09:45 Lidocaine HCl 1% [Xylocaine 1%] 5 ml SUBCUT DIRECTED 03/29/17 10:58 Wound Care [Dressing Change] 3XW 03/29/17 11:00 Collagenase Oint [Santyl Oint] 1 kylee TOPICAL PRN 03/29/17 15:00 Non-Formulary Medication 1 TOPICAL TID 03/30/17 08:48 Lidocaine HCl/Pf 4% [Xylocaine 4%] 5 ml TOPICAL PRN PRN 03/30/17 09:00 Vit/Fe Fumarate/FA [ Rx 1] 1 tab PO DAILY 03/30/17 09:03 Beneprotein Supplement . 03/30/17 17:00 Colchicine [Colcrys] 0.6 mg PO DAILY 03/31/17 11:28 Miscellaneous Care Order . 03/31/17 12:00 Dapsone 150 mg PO DAILY 04/01/17 09:00 predniSONE [Deltasone] 20 mg PO DAILY Labs on day of discharge: Labs from last 24 hours 03/31/17 05:58 Plt Count 545 H IM: Discharge Physical Exam - I&O/Vital Signs I&O: Intake & Output 03/30/17 03/31/17 03/31/17 21:59 05:59 13:59 Intake Total 1267 450 Output Total 950 420 Balance 317 30 Weight 48.5 kg Intake: Oral 1267 450 Output: Urine 950 420 Other: Urine Appearance Clear Clear Clear Urine Color Yellow Yellow Yellow Stool Size Large Large Stool Characteristics Soft Soft Formed Formed Brown Brown Voiding Method Toilet Toilet Toilet # Voids 1 # Bowel Movements 1 Vital Signs: Last Vital Signs Temp 36.7 C 03/31/17 10:52 Pulse 84 03/31/17 10:52 Resp 20 03/31/17 10:52 BP 127/63 03/31/17 10:52 Pulse Ox 95 03/31/17 10:52 Oxygen Delivery Method Room Air - Constitutional General appearance: Present: thin - Head Head exam: Present: atraumatic - Eye Eye exam: Present: EOMI - ENT ENT exam: Present: mucous membranes moist - Neck Neck exam: Present: full ROM. Absent: lymphadenopathy - Respiratory Respiratory exam: Present: CTAB - Cardiovascular Cardiovascular exam: Present: RRR - GI/Abdominal GI/Abdominal exam: Present: normal bowel sounds, soft. Absent: mass, tenderness - Extremities Exam Extremities exam: Present: calf tenderness (exquisite pain legs distal to knees with even light touch), edema (+), tenderness - Neurological Exam Neurological exam: Present: abnormal gait - Skin Skin exam: Present: erythema, other (punched out lesion right lower leg less erythema and ?tenderness, ydorcolloid and telfa, for sacral decubes Santyl to eschar and medihoney to deep tunnelled lesion, some is pressure related asome is likely vasculitic and confounded by malnutrtiion) - Allied Health Notes Allied health notes reviewed: case management, nursing
[2017-03-31 15:07] VITALS: BP 131/63; PULSE 88; TEMP 97.4; O2SAT 93
[2017-03-31] MEDS: [UNRECOGNIZED DRUG - OTHER] TOPICAL SCH (15:32)
[2017-03-31 16:02] LABS: CYCLIC CITRULLINATED PEPT AB SEE COMMENTS (())
[2017-04-01] MEDS ORDERED: predniSONE 10 MG TABLET PO SCH (09:00)
== END 2017-03-31 13:28 | disposition swing bed (61) | DRG 74 ==
LOC: ER 18:52 → IN 21:34
PROVIDERS: ADMIT Internal Medicine; ATTEND Hospitalist
PROC: 0HBKXZX Excision of Right Lower Leg Skin, External Approach, Diagnostic (ICD-10-PCS; principal; 2017-03-29)
DX: G62.9 Polyneuropathy, unspecified (principal); E88.09 Other disorders of plasma-protein metabolism, not elsewhere classified; L95.8 Other vasculitis limited to the skin; L03.115 Cellulitis of right lower limb; K90.0 Celiac disease; R63.4 Abnormal weight loss; M06.89 Other specified rheumatoid arthritis, multiple sites; D63.8 Anemia in other chronic diseases classified elsewhere; E46 Unspecified protein-calorie malnutrition; L89.159 Pressure ulcer of sacral region, unspecified stage; F03.90 Unspecified dementia, unspecified severity, without behavioral disturbance, psychotic disturbance, mood disturbance, and anxiety; F32.89 Other specified depressive episodes; M35.00 Sjogren syndrome, unspecified; K21.9 Gastro-esophageal reflux disease without esophagitis; E87.6 Hypokalemia; M85.89 Other specified disorders of bone density and structure, multiple sites; G47.00 Insomnia, unspecified; N81.10 Cystocele, unspecified; H04.123 Dry eye syndrome of bilateral lacrimal glands; Z79.899 Other long term (current) drug therapy
CPT/HCPCS: 36415; 80048; 80053; 80076; 82270; 83540; 84134; 84466; 85007; 85025; 85027; 85049; 85651; 86039; 86140; 86200; 87040; 96365; 96375; 99285; J0690; J1650; J1885; J7030; J7050; J7512

== ENCOUNTER 2017-03-31 09:08 | Inpatient (IN) | payer MEDICARE ==
[2017-03-31] MEDS ORDERED: HOME MEDICATION LIST NEEDED 1 EA EACH MC ONE (13:15)
[2017-03-31] MEDS ORDERED: MAGNESIUM HYDROXIDE 30 ML UDC PO PRN (13:15)
[2017-03-31] MEDS ORDERED: FENTANYL 100 MCG/2 ML VIAL IV PRN (13:22)
--- NOTE | 2017-03-31 16:28 | HISTORY & PHYSICAL ---
DATE OF ADMISSION TO ACUTE STAY: 03/28/17 DATE OF ADMISSION TO SWING BED: 03/31/17 ATTENDING PHYSICIAN: Compa Elliott MD REASON FOR INITIAL ADMISSION: Deconditioning, worsening axonal sensory neuropathy pains with vascular ulcerations and possible cellulitis. HISTORY OF PRESENT ILLNESS: The patient is a 76-year-old lady with past medical history significant for severe rheumatoid arthritis, currently only on steroids , history of axonal sensory neuropathy, protein-calorie malnutrition and sacral decubiti, celiac disease and anemia of chronic disease. She presented to the Emergency Room on 03/28/17, was evaluated by Dr. Pimentel who admitted for a possible cellulitis, as well as adrenal insufficiency. She was started on stress -dose steroids. Her wounds were cultured. She was not started on antibiotics, and the following morning, her white count had increased with the steroids with a neutrophil predominance and the pain persist, though erythema and edema had started to improve. At that time, arranged for biopsy of lesions as they were suggestive of vasculitis ulcerations or more punched out appearing. This was performed. Patient was then started on Solu-Medrol 1 gram daily for 5 days as well as continued on her Remeron at night, partly for sleep and partly for appetite stimulation and a gluten-free diet as well as additional protein with yogurt and Ensure products. Because of concern for vasculitic ulceration, initially could not identify or locate, biopsy had been sent to [facility] , patient was empirically started on Dapsone and colchicine. A CCP and ASHLEY are currently pending. She noted some marked improvement in her lower extremity pain. The wound is less red and swollen. It has been dressed with Santyl, occluded with Telfa and lightly secured with rolled gauze and a lightly wrapped Rob wrap. In addition, she has sacral decubiti secondary to immobility with her painful neuropathy and partly from lack of volition, exacerbation by protein- calorie malnutrition, and this has been dressed with Medihoney and frequent position changes, as well as attempting to improve her nutrition. There is no fever, cough, cold congestion. No abdominal pain. No nausea or vomiting. She has no edema of her lower extremities. She has exquisite allodynia , worse on the right compared to the left, and vascular ulcerations in the lateral right lower extremity. She also has a deep tunneling but unstageable sacral decubitus as described above. There is no dysuria and no diarrhea or constipation. PAST MEDICAL HISTORY 1. Adult onset celiac disease. 2. Anemia of chronic disease. 3. Axonal central neuropathy. 4. Sacral decubitus. 5. Depression controlled currently on Remeron. 6. 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 7. Osteopenia related to chronic steroids, but does not wish bisphosphonate therapy. 8. Rheumatoid arthritis. 9. Sjogrens syndrome. 10. Insomnia. 11. Unintentional weight loss. PAST SURGICAL HISTORY 1. Hysterectomy. 2. Bilateral cataract surgery. 3. Appendectomy. 4. G2, P2 with spontaneous vaginal deliveries. ALLERGIES: Acetaminophen. Arava. Ciprofloxacin. FAMILY HISTORY: Cousin with rheumatoid arthritis. Father had lung cancer and emphysema. Mother had fibromyalgia and hypertension. Son had hypertension, OCD and alcohol abuse. SOCIAL HISTORY: She does not drink alcohol. She is . 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 HEALTH CARE MAINTENANCE: Most recent colonoscopy was in 2005 and normal. MEDICATIONS Vitamin D3. vitamin. Gabapentin 300 mg q.h.s. Ketaprofen powder mixed with PLO. Elavil. Ketamine applied 3 times daily, although she admits to being noncompliant with this. Potassium chloride 20 MEQ daily. Melatonin 2.5 mg at night. Mirtazapine 30 mg at night. Prednisone had been 7.5 mg daily, reasonably increased by Dr. Mcnamara. Tramadol 15 mg daily. Dapsone 150 mg daily. Colchicine 0.68 mg daily. PHYSICAL EXAMINATION VITAL SIGNS: She is afebrile at 98.8. Heart rate have ranged 70-90s, respiratory rate 14-16 and blood pressures 100-130s/60-80s. GENERAL: She is pleasant and currently without distress. There is no jaundice or anemia. No pale conjunctivae, cyanosis, clubbing or lymphadenopathy. NECK: Supple. CARDIAC: S1, S2 without murmur. RESPIRATORY: Good air entry into the bases without adventitial sounds. ABDOMEN: Soft, nontender and no masses. Sacral decubitus is down through the subcutaneous tissue, although no muscle appreciated. There is tunneling caudally and cephalad with Medihoney in place. LOWER EXTREMITY: Minimal venous stasis changes but a punched out ulceration in the right lower extremity with granulation. Minimal erythema and currently minimal edema. There is allodynia on the right worse than left. ASSESSMENT 1. Deconditioning. 2. 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 3. Vasculitic ulcerations. 4. Anemia of chronic disease. 5. History of celiac disease. 6. Rheumatoid arthritis. 7. Unexplained weight loss. 8. Protein calorie malnutrition. PLAN: Will continue Dapsone, Colchicine and Solu-Medrol, pulse steroids with transition to Prednisone on Monday. Follow up biopsies and CCP as well as ASHLEY. Have started an Elavil and Ketaprofen mixture of 5-10% respectively and PLO applied to her lower extremities t.i.d. for an adjunct for pain control as well as continue her usual Tramadol. Will continue vitamin D supplementation and consider Miacalcin nasal spray, but patient currently is reticent to take any further medications. I have increased her Remeron from 15 mg to 30 mg h.s. Will consider an additional 7.5 mg morning dose as an adjunct for sleep, for appetite stimulation as well as depression. MTDD
[2017-03-31] MEDS: DICLOFENAC 1% GEL 100 APP/100 GM TUBE TOPICAL SCH ×2 (17:31→20:25)
[2017-03-31] MEDS: traMADol HCL 50 MG TABLET PO PRN (20:26)
[2017-03-31] MEDS: MIRTAZAPINE 15 MG TAB PO SCH (20:26)
[2017-04-01 00:23] LABS: URINE MUCUS NONE SEEN (Up to 25%); URINE RBC NONE SEEN (0-5/hpf)
[2017-04-01 01:09] LABS: URINE APPEARANCE CLEAR; URINE COLOR YELLOW; URINE SPECIFIC GRAVITY 1.015 (0.001-1.035)
[2017-04-01 01:10] LABS: URINE BACTERIA <10 ORGANISMS/hpf (<10/hpf); URINE BILIRUBIN NEGATIVE (NEGATIVE); URINE BLOOD NEGATIVE (NEGATIVE); URINE GLUCOSE NORMAL (NEGATIVE); URINE KETONE NEGATIVE (NEGATIVE); URINE LEUKOCYTE ESTERASE 25 WBC/uL (1+) (NEGATIVE); URINE NITRITE NEGATIVE (NEGATIVE); URINE PROTEIN NEGATIVE (NEG - TRACE); URINE SQUAMOUS EPITHELIAL CELL 0-5/hpf (<= 15/hpf); URINE UROBILINOGEN 0.2mg/dL (Normal) (NEG-1mg/dL); URINE WBC 0-4/hpf (0-4/hpf)
[2017-04-01 06:21] LABS: BASOPHIL# 0.1 X 10^3uL (0.0-0.1); BASOPHILS 0.6 % (0.0-2.0); HEMATOCRIT 37.3 % (36.0-48.0); HEMOGLOBIN 11.9 g/dL (12.0-16.0); LYMPHOCYTES 6.1 % (20.0-40.0); LYMPHOCYTES# 0.8 X 10^3uL (0.8-3.8); MEAN CELL VOLUME 82.2 fL (80.0-100.0); MEAN CORPUS. HGB CONCENTRATION 31.9 g/dL (32.0-36.0); MEAN CORPUSCULAR HEMOGLOBIN 26.2 pg (29.0-35.0); MEAN PLATELET VOLUME 6.9 fL (7.4-10.4); MONOCYTES 4.9 % (2.0-10.0); MONOCYTES# 0.6 X 10^3uL (0.2-1.0); NEUTROPHILS# 11.1 X 10^3uL (2.6-6.7); PLATELET COUNT 506 X 10^3uL (130-440); RED BLOOD COUNT 4.54 X 10^6uL (4.20-6.10); RED CELL DISTRIBUTION WIDTH 13.6 % (11.5-14.5); WHITE BLOOD COUNT 12.6 X 10^3uL (3.9-10.7)
[2017-04-01 06:43] LABS: ALBUMIN 2.7 g/dL (3.5-5.0); ALKALINE PHOSPHATASE 39 U/L (38-126); ALT 37 U/L (9-52); AST 26 U/L (14-36); BILIRUBIN, TOTAL 0.3 mg/dL (0.2-1.3); BLOOD UREA NITROGEN 26 mg/dL (7-17); CALCIUM 8.3 mg/dL (8.4-10.2); CHLORIDE 101 mmol/L (98-107); CREATININE 0.5 mg/dL (0.5-1.0); EST GLOMERULAR FILTRATION RATE > 60 mL/min; GLUCOSE 101 mg/dL (70-100); POTASSIUM 4.4 mmol/L (3.5-5.1); SODIUM 135 mmol/L (137-145); TOTAL PROTEIN 5.5 g/dL (6.3-8.2)
[2017-04-01 06:58] LABS: NEUTROPHILS 88.4 % (54.0-75.0)
[2017-04-01] MEDS: CHOLECALCIFEROL 1,000 UNIT CAPSULE PO SCH (10:17)
[2017-04-01] MEDS: PRENATAL VIT/FE FUMARATE/FA 1 TAB TABLET PO SCH (10:18)
[2017-04-01] MEDS: ENOXAPARIN SODIUM 40 MG/0.4 ML SYR SUBCUT SCH (10:19)
[2017-04-01] MEDS: FERROUS SULFATE 325 MG TABLET PO SCH (10:19)
[2017-04-01] MEDS: METHYLPREDNISOLONE SOD IV SCH (10:22)
[2017-04-01] MEDS: COLCHICINE 0.6 MG TABLET PO SCH (10:22)
[2017-04-01] MEDS: NORMAL SALINE MINI IV SCH (10:22)
[2017-04-01] MEDS: DICLOFENAC 1% GEL 100 APP/100 GM TUBE TOPICAL SCH ×3 (10:26→20:13)
[2017-04-01] MEDS: DAPSONE 25 MG TABLET PO SCH (10:27)
[2017-04-01] MEDS: POTASSIUM CHLORIDE 20 MEQ/15 ML UDC PO SCH (10:53)
[2017-04-01] MEDS: traMADol HCL 50 MG TABLET PO PRN ×2 (11:08→20:16)
[2017-04-01] MEDS: COLLAGENASE OINT 30 APP/30 GM TUBE TOPICAL SCH (15:27)
[2017-04-01] MEDS: MIRTAZAPINE 15 MG TAB PO SCH (20:16)
[2017-04-02] MEDS: traMADol HCL 50 MG TABLET PO PRN (08:34)
--- NOTE | 2017-04-02 09:15 | PROGRESS NOTE: IM APSO ---
Assessment and Plan - Date of Encounter Date of Encounter: 04/02/17 (1) Cellulitis Status: Acute Assessment and plan: this seems to be resolved now. There is no surround erythema on any of the wounds. Current Visit: No (2) Protein calorie malnutrition Status: Acute Assessment and plan: this is contributing to her skin problems. Slowly improving. Current Visit: No (3) Axonal sensorimotor neuropathy Status: Chronic Assessment and plan: with very painful lower legs, especially on the right calf. Current Visit: No (4) Decubitus ulcer of coccyx, stage 2 Status: Acute Assessment and plan: improving nicely. No signs of infection. Current Visit: Yes (5) Vasculitis limited to skin Status: Acute Assessment and plan: vasculitic ulcer on the right calf is very painful. Biopsy results are pending. She had some pulse high-dose IV steroid at the beginning of admission. Currently on prednisone Current Visit: Yes - Time Spent With Patient Total time spent with greater than 50% in coordination of care (as documented) at patient's floor/unit and/or counseling patient: Estimated anticipated discharge: Uncertain. IM: PN Subjective General: fatigue, pain (from leg rash), no fever, no chills Cardiovascular: no chest pain Respiratory: no cough Gastrointestinal: no abdominal pain Musculoskeletal: weakness (generalized) Integumentary: sore spot (her right calf ulceration remains very painful), wound (left foot, right calf, and coccyx) IM: PN Objective Exam - I&O/Vital Signs I&O: Intake & Output 04/01/17 04/02/17 04/02/17 21:59 05:59 13:59 Intake Total 1607 200 Output Total 1252 1175 Balance 355 -975 Weight 45.5 kg Intake: Oral 1487 200 Oral Supplement 120 Output: Urine 1250 1175 Stool 2 Other: Urine Appearance Clear Clear Urine Color Yellow Yellow Stool Size Small Small Moderate Stool Characteristics Formed Soft Soft Brown Formed Formed Voiding Method Toilet Toilet # Bowel Movements 2 1 Vital Signs: Last Vital Signs Temp 36.8 C 04/02/17 06:40 Pulse 86 04/02/17 06:40 Resp 19 04/02/17 06:40 BP 150/85 04/02/17 06:40 Pulse Ox 86 L 04/02/17 06:40 Oxygen Delivery Method Room Air - Constitutional General appearance: Present: thin - ENT ENT exam: Present: mucous membranes moist - Respiratory Respiratory exam: Present: clear - Cardiovascular Cardiovascular exam: Present: RRR. Absent: systolic murmur - Skin Skin exam: Present: other (she has 2 ulcerations on the coccyx, 0.5 cm and 1 cm in diameter. These are much improved according to the staff. She also has approximately 2 x 5 cm ulceration on the right calf that is extre. The eschar over this is softening and now covers only about one third of the wound. She also has a subcentimeter scab on the left foot and left ma.) - Lab Labs: Laboratory Last Values WBC 12.6 X 10^3uL (3.9-10.7) H 04/01/17 06:00 RBC 4.54 X 10^6uL (4.20-6.10) 04/01/17 06:00 Hgb 11.9 g/dL (12.0-16.0) L 04/01/17 06:00 Hct 37.3 % (36.0-48.0) 04/01/17 06:00 MCV 82.2 fL (80.0-100.0) 04/01/17 06:00 MCH 26.2 pg (29.0-35.0) L 04/01/17 06:00 MCHC 31.9 g/dL (32.0-36.0) L 04/01/17 06:00 RDW 13.6 % (11.5-14.5) 04/01/17 06:00 Plt Count 506 X 10^3uL (130-440) H 04/01/17 06:00 MPV 6.9 fL (7.4-10.4) L 04/01/17 06:00 Neutrophils % 88.4 % (54.0-75.0) H 04/01/17 06:00 Lymphocytes % 6.1 % (20.0-40.0) L 04/01/17 06:00 Eosinophils % 0.0 % (0.0-6.0) 04/01/17 06:00 Basophils % 0.6 % (0.0-2.0) 04/01/17 06:00 Neutrophils # 11.1 X 10^3uL (2.6-6.7) H 04/01/17 06:00 Lymphocytes # 0.8 X 10^3uL (0.8-3.8) 04/01/17 06:00 Monocytes 4.9 % (2.0-10.0) 04/01/17 06:00 Monocytes # 0.6 X 10^3uL (0.2-1.0) 04/01/17 06:00 Eosinophils # 0.0 X 10^3uL (0.0-0.4) 04/01/17 06:00 Basophils # 0.1 X 10^3uL (0.0-0.1) 04/01/17 06:00 Sodium 135 mmol/L (137-145) L 04/01/17 06:00 Potassium 4.4 mmol/L (3.5-5.1) 04/01/17 06:00 Chloride 101 mmol/L (98-107) 04/01/17 06:00 Carbon Dioxide 27 mmol/L (22-30) 04/01/17 06:00 BUN 26 mg/dL (7-17) H D 04/01/17 06:00 Creatinine 0.5 mg/dL (0.5-1.0) 04/01/17 06:00 GFR Calculation > 60 mL/min 04/01/17 06:00 Glucose 101 mg/dL (70-100) H 04/01/17 06:00 Calcium 8.3 mg/dL (8.4-10.2) L 04/01/17 06:00 Total Bilirubin 0.3 mg/dL (0.2-1.3) 04/01/17 06:00 Direct Bilirubin 0.0 mg/dL (0.0-0.4) 04/01/17 06:00 AST 26 U/L (14-36) 04/01/17 06:00 ALT 37 U/L (9-52) 04/01/17 06:00 Alkaline Phosphatase 39 U/L (38-126) 04/01/17 06:00 Total Protein 5.5 g/dL (6.3-8.2) L 04/01/17 06:00 Albumin 2.7 g/dL (3.5-5.0) L 04/01/17 06:00 Urine Color Yellow 03/31/17 23:30 Urine Appearance Clear 03/31/17 23:30 Urine pH 7.0 (5-7) 03/31/17 23:30 Ur Specific [place] 1.015 (0.001-1.035) 03/31/17 23:30 Urine Protein Negative (NEG - TRACE) 03/31/17 23:30 Urine Ketones Negative (NEGATIVE) 03/31/17 23:30 Urine Blood Negative (NEGATIVE) 03/31/17 23:30 Urine Nitrate Negative (NEGATIVE) 03/31/17 23:30 Urine Bilirubin Negative (NEGATIVE) 03/31/17 23:30 Urine Urobilinogen 0.2mg/dl (normal) (NEG-1mg/dL) 03/31/17 23:30 Ur Leukocyte Esterase 25 wbc/ul (1+) (NEGATIVE) A 03/31/17 23:30 Urine RBC None seen (0-5/hpf) 03/31/17 23:30 Urine WBC 0-4/hpf (0-4/hpf) 03/31/17 23:30 Ur Squamous Epith Cells 0-5/hpf (<= 15/hpf) 03/31/17 23:30 Urine Bacteria <10 organisms/hpf (<10/hpf) 03/31/17 23:30 Urine Mucus None seen (Up to 25%) 03/31/17 23:30 Urine Glucose Normal (NEGATIVE) 03/31/17 23:30 Quality Questions - VTE Prophylaxis Assessment VTE Present on Admission?: No Patient at risk for venous thromboembolism?: Yes VTE Risk Level: High Risk Pharmaceutical VTE prophylaxis contraindication reason: N/A- VTE prophylaxsis ordered Mechanical VTE prophylaxis contraindication reason: N/A- VTE prophylaxsis ordered
[2017-04-02] MEDS: COLCHICINE 0.6 MG TABLET PO SCH (09:28)
[2017-04-02] MEDS: DAPSONE 25 MG TABLET PO SCH (09:29)
[2017-04-02] MEDS: FERROUS SULFATE 325 MG TABLET PO SCH (09:30)
[2017-04-02] MEDS: ENOXAPARIN SODIUM 40 MG/0.4 ML SYR SUBCUT SCH (09:31)
[2017-04-02] MEDS: POTASSIUM CHLORIDE 20 MEQ/15 ML UDC PO SCH (09:31)
[2017-04-02] MEDS: PRENATAL VIT/FE FUMARATE/FA 1 TAB TABLET PO SCH (09:32)
[2017-04-02] MEDS: COLLAGENASE OINT 30 APP/30 GM TUBE TOPICAL SCH (09:32)
[2017-04-02] MEDS ORDERED: LIDOCAINE HCL 2% 20 ML VIAL ONE (09:33)
[2017-04-02] MEDS: DICLOFENAC 1% GEL 100 APP/100 GM TUBE TOPICAL SCH ×3 (09:33→20:02)
[2017-04-02] MEDS: CHOLECALCIFEROL 1,000 UNIT CAPSULE PO SCH (09:33)
[2017-04-02] MEDS ORDERED: LIDOCAINE HCL/PF 4% 5 ML AMP TOPICAL ONE (09:35)
[2017-04-02] MEDS: NORMAL SALINE MINI IV SCH (10:32)
[2017-04-02] MEDS: METHYLPREDNISOLONE SOD IV SCH (10:32)
[2017-04-02] MEDS ORDERED: NORMAL SALINE 0 ML IV ONE (10:42)
[2017-04-02] MEDS: MIRTAZAPINE 15 MG TAB PO SCH (20:01)
[2017-04-03 06:33] LABS: BASOPHILS 0.1 % (0.0-2.0); HEMOGLOBIN 12.1 g/dL (12.0-16.0); LYMPHOCYTES 5.1 % (20.0-40.0); LYMPHOCYTES# 0.8 X 10^3uL (0.8-3.8); MEAN CELL VOLUME 82.5 fL (80.0-100.0); MEAN CORPUS. HGB CONCENTRATION 32.6 g/dL (32.0-36.0); MEAN CORPUSCULAR HEMOGLOBIN 26.9 pg (29.0-35.0); MONOCYTES# 0.8 X 10^3uL (0.2-1.0); NEUTROPHILS 89.8 % (54.0-75.0); RED BLOOD COUNT 4.48 X 10^6uL (4.20-6.10); RED CELL DISTRIBUTION WIDTH 13.9 % (11.5-14.5)
[2017-04-03 06:55] LABS: BLOOD UREA NITROGEN 24 mg/dL (7-17); C-REACTIVE PROTEIN 5.4 mg/L (<10.0); CHLORIDE 103 mmol/L (98-107); CREATININE 0.4 mg/dL (0.5-1.0); EST GLOMERULAR FILTRATION RATE > 60 mL/min; GLUCOSE 103 mg/dL (70-100); POTASSIUM 4.8 mmol/L (3.5-5.1); SODIUM 135 mmol/L (137-145)
[2017-04-03 07:05] LABS: NEUTROPHILS# 13.9 X 10^3uL (2.6-6.7); PLATELET COUNT 478 X 10^3uL (130-440); WHITE BLOOD COUNT 15.5 X 10^3uL (3.9-10.7)
[2017-04-03] MEDS: traMADol HCL 50 MG TABLET PO PRN (08:38)
[2017-04-03] MEDS ORDERED: LIDOCAINE HCL/PF 4% 5 ML AMP TOPICAL ONE ×3 (08:42→13:54)
[2017-04-03] MEDS ORDERED: LIDOCAINE HCL 4% 160 MG/4 ML KIT ONE (08:44)
[2017-04-03] MEDS ORDERED: traMADol HCL 50 MG TABLET PO SCH (08:45)
[2017-04-03] MEDS ORDERED: predniSONE 10 MG TABLET PO SCH (09:00)
--- NOTE | 2017-04-03 09:04 | PROGRESS NOTE: IM APSO ---
Assessment and Plan - Date of Encounter Date of Encounter: 04/03/17 (1) Protein calorie malnutrition Status: Chronic Assessment and plan: f/u prealbumin, ensure and protein as well gluten free diet Current Visit: No (2) Vasculitis limited to skin Status: Acute Assessment and plan: steroids changing solumedrol to prednisone, colchicine started and await family procurring the Dapsone. Current Visit: Yes (3) Decubitus ulcer of coccyx, stage 2 Status: Chronic Assessment and plan: dressed and trying to minimize pressure with position changes and nutrition Current Visit: Yes (4) Anemia in chronic illness Status: Chronic Current Visit: No (5) Axonal sensorimotor neuropathy Status: Chronic Current Visit: No (6) Celiac disease Status: Chronic Current Visit: No (7) Rheumatoid arthritis Status: Chronic Assessment and plan: uncontrolled with markedly elevated CCP and vasculitis related ulcerations, Dapsone when family can collect, colchicine and steroids Current Visit: No (8) Allodynia Status: Chronic Assessment and plan: from axonal vasculitis related dz, starting Ketamine topically, on Remeron, and have requested clinical pharm to review care and offer additional options Current Visit: Yes - Time Spent With Patient Total time spent with greater than 50% in coordination of care (as documented) at patient's floor/unit and/or counseling patient: Greater than 35 minutes (wound heaps better, reviewed with Roxie Wound Nurse) Estimated anticipated discharge: Uncertain. IM: PN Subjective General: fatigue, pain (has allodynia from axonal sensory neuropathy, likely related to vasculitis with markedly elevated CCP, received pulse steroids without improvement in pain but marked improveddment in ulceration. Did not start Dapsone as family has not picked up and delivered yet.), no fever, no chills Cardiovascular: no chest pain Respiratory: no cough Gastrointestinal: no abdominal pain Musculoskeletal: weakness (generalized) Integumentary: sore spot (her right calf ulceration remains very painful), wound (left foot, right calf, and coccyx) IM: PN Objective Exam - I&O/Vital Signs I&O: Intake & Output 04/02/17 04/03/17 04/03/17 21:59 05:59 13:59 Intake Total 1580 200 Output Total 1000 930 Balance 580 -730 Weight 49.5 kg 49.5 kg Intake: Oral 1340 200 Oral Supplement 240 Output: Urine 1000 930 Other: Urine Appearance Clear Clear Urine Color Yellow Yellow Stool Size Moderate Stool Characteristics Soft Voiding Method Toilet Bedside Commode # Voids 1 2 # Bowel Movements 3 0 Vital Signs: Last Vital Signs Temp 36.6 C 04/03/17 06:17 Pulse 81 04/03/17 06:17 Resp 16 04/03/17 06:17 BP 153/75 04/03/17 06:17 Pulse Ox 89 L 04/03/17 06:17 Oxygen Delivery Method Room Air - Constitutional General appearance: Present: thin - ENT ENT exam: Present: mucous membranes moist - Respiratory Respiratory exam: Present: clear - Cardiovascular Cardiovascular exam: Present: RRR. Absent: systolic murmur - Skin Skin exam: Present: other (she has 2 ulcerations on the coccyx, 0.5 cm and 1 cm in diameter. These are much improved according to the staff. She also has approximately 2 x 5 cm ulceration on the right calf that is extre. The eschar over this is softening and now covers only about one third of the wound. She also has a subcentimeter scab on the left foot and left ma.) - Lab Labs: Laboratory Last Values WBC 15.5 X 10^3uL (3.9-10.7) H 04/03/17 06:00 RBC 4.48 X 10^6uL (4.20-6.10) 04/03/17 06:00 Hgb 12.1 g/dL (12.0-16.0) 04/03/17 06:00 Hct 37.0 % (36.0-48.0) 04/03/17 06:00 MCV 82.5 fL (80.0-100.0) 04/03/17 06:00 MCH 26.9 pg (29.0-35.0) L 04/03/17 06:00 MCHC 32.6 g/dL (32.0-36.0) 04/03/17 06:00 RDW 13.9 % (11.5-14.5) 04/03/17 06:00 Plt Count 478 X 10^3uL (130-440) H 04/03/17 06:00 MPV 7.0 fL (7.4-10.4) L 04/03/17 06:00 Neutrophils % 89.8 % (54.0-75.0) H 04/03/17 06:00 Lymphocytes % 5.1 % (20.0-40.0) L 04/03/17 06:00 Eosinophils % 0.0 % (0.0-6.0) 04/03/17 06:00 Basophils % 0.1 % (0.0-2.0) 04/03/17 06:00 Neutrophils # 13.9 X 10^3uL (2.6-6.7) H 04/03/17 06:00 Lymphocytes # 0.8 X 10^3uL (0.8-3.8) 04/03/17 06:00 Monocytes 5.0 % (2.0-10.0) 04/03/17 06:00 Monocytes # 0.8 X 10^3uL (0.2-1.0) 04/03/17 06:00 Eosinophils # 0.0 X 10^3uL (0.0-0.4) 04/03/17 06:00 Basophils # 0.0 X 10^3uL (0.0-0.1) 04/03/17 06:00 Sodium 135 mmol/L (137-145) L 04/03/17 06:00 Potassium 4.8 mmol/L (3.5-5.1) 04/03/17 06:00 Chloride 103 mmol/L (98-107) 04/03/17 06:00 Carbon Dioxide 26 mmol/L (22-30) 04/03/17 06:00 BUN 24 mg/dL (7-17) H 04/03/17 06:00 Creatinine 0.4 mg/dL (0.5-1.0) L 04/03/17 06:00 GFR Calculation > 60 mL/min 04/03/17 06:00 Glucose 103 mg/dL (70-100) H 04/03/17 06:00 Calcium 8.0 mg/dL (8.4-10.2) L 04/03/17 06:00 Total Bilirubin 0.3 mg/dL (0.2-1.3) 04/01/17 06:00 Direct Bilirubin 0.0 mg/dL (0.0-0.4) 04/01/17 06:00 AST 26 U/L (14-36) 04/01/17 06:00 ALT 37 U/L (9-52) 04/01/17 06:00 Alkaline Phosphatase 39 U/L (38-126) 04/01/17 06:00 C-Reactive Protein 5.4 mg/L (<10.0) 04/03/17 06:00 Total Protein 5.5 g/dL (6.3-8.2) L 04/01/17 06:00 Albumin 2.7 g/dL (3.5-5.0) L 04/01/17 06:00 Urine Color Yellow 03/31/17 23:30 Urine Appearance Clear 03/31/17 23:30 Urine pH 7.0 (5-7) 03/31/17 23:30 Ur Specific [place] 1.015 (0.001-1.035) 03/31/17 23:30 Urine Protein Negative (NEG - TRACE) 03/31/17 23: Urine Ketones Negative (NEGATIVE) 03/31/17 23:30 Urine Blood Negative (NEGATIVE) 03/31/17 23:30 Urine Nitrate Negative (NEGATIVE) 03/31/17 23:30 Urine Bilirubin Negative (NEGATIVE) 03/31/17 23: Urine Urobilinogen 0.2mg/dl (normal) (NEG-1mg/dL) 03/31/17 23:30 Ur Leukocyte Esterase 25 wbc/ul (1+) (NEGATIVE) A 03/31/17 23:30 Urine RBC None seen (0-5/hpf) 03/31/17 23:30 Urine WBC 0-4/hpf (0-4/hpf) 03/31/17 23:30 Ur Squamous Epith Cells 0-5/hpf (<= 15/hpf) 03/31/17 23:30 Urine Bacteria <10 organisms/hpf (<10/hpf) 03/31/17 23:30 Urine Mucus None seen (Up to 25%) 03/31/17 23:30 Urine Glucose Normal (NEGATIVE) 03/31/17 23:30
[2017-04-03] MEDS: DICLOFENAC 1% GEL 100 APP/100 GM TUBE TOPICAL SCH ×4 (09:33→21:18)
[2017-04-03] MEDS: traMADol HCL 50 MG TABLET PO SCH ×3 (09:34→21:17)
[2017-04-03] MEDS: NORMAL SALINE MINI IV SCH (10:49)
[2017-04-03] MEDS: METHYLPREDNISOLONE SOD IV SCH (10:49)
[2017-04-03] MEDS: ENOXAPARIN SODIUM 40 MG/0.4 ML SYR SUBCUT SCH (10:51)
[2017-04-03] MEDS: DAPSONE 25 MG TABLET PO SCH (10:52)
[2017-04-03] MEDS: POTASSIUM CHLORIDE 20 MEQ/15 ML UDC PO SCH (10:52)
[2017-04-03] MEDS: COLCHICINE 0.6 MG TABLET PO SCH (10:53)
[2017-04-03] MEDS: PRENATAL VIT/FE FUMARATE/FA 1 TAB TABLET PO SCH (10:53)
[2017-04-03] MEDS: FERROUS SULFATE 325 MG TABLET PO SCH (10:53)
[2017-04-03] MEDS: COLLAGENASE OINT 30 APP/30 GM TUBE TOPICAL SCH (10:54)
[2017-04-03] MEDS: CHOLECALCIFEROL 1,000 UNIT CAPSULE PO SCH (10:54)
[2017-04-03] MEDS: AMITRIP TOPICAL SCH ×3 (13:27→21:16)
[2017-04-03] MEDS: KETAMINE TOPICAL SCH ×3 (13:27→21:16)
[2017-04-03] MEDS: [UNRECOGNIZED DRUG - OTHER] TOPICAL SCH ×3 (13:27→21:16)
[2017-04-03] MEDS: MIRTAZAPINE 15 MG TAB PO SCH (21:18)
[2017-04-03] MEDS ORDERED: COLLAGENASE OINT 30 APP/30 GM TUBE TOPICAL ONE (21:22)
[2017-04-04] MEDS: PRENATAL VIT/FE FUMARATE/FA 1 TAB TABLET PO SCH (09:13)
[2017-04-04] MEDS: DAPSONE 25 MG TABLET PO SCH (09:13)
[2017-04-04] MEDS: CHOLECALCIFEROL 1,000 UNIT CAPSULE PO SCH (09:13)
[2017-04-04] MEDS: FERROUS SULFATE 325 MG TABLET PO SCH (09:13)
[2017-04-04] MEDS: ENOXAPARIN SODIUM 40 MG/0.4 ML SYR SUBCUT SCH (09:13)
[2017-04-04] MEDS: predniSONE 10 MG TABLET PO SCH (09:14)
[2017-04-04] MEDS: POTASSIUM CHLORIDE 20 MEQ/15 ML UDC PO SCH (09:14)
[2017-04-04] MEDS: COLCHICINE 0.6 MG TABLET PO SCH (09:14)
[2017-04-04] MEDS ORDERED: LIDOCAINE HCL/PF 4% 5 ML AMP TOPICAL ONE ×2 (10:21→15:15)
[2017-04-04] MEDS: COLLAGENASE OINT 30 APP/30 GM TUBE TOPICAL SCH (10:52)
[2017-04-04] MEDS: DICLOFENAC 1% GEL 100 APP/100 GM TUBE TOPICAL SCH ×3 (10:52→20:51)
[2017-04-04] MEDS: [UNRECOGNIZED DRUG - OTHER] TOPICAL SCH ×3 (10:52→20:51)
[2017-04-04] MEDS: traMADol HCL 50 MG TABLET PO SCH ×3 (10:52→21:10)
[2017-04-04] MEDS: KETAMINE TOPICAL SCH ×3 (10:52→20:51)
[2017-04-04] MEDS: AMITRIP TOPICAL SCH ×3 (10:52→20:51)
[2017-04-04] MEDS: MIRTAZAPINE 15 MG TAB PO SCH (20:50)
[2017-04-05 06:20] LABS: BASOPHILS 0.1 % (0.0-2.0); EOSINOPHILS 0.3 % (0.0-6.0); EOSINOPHILS# 0.1 X 10^3uL (0.0-0.4); HEMATOCRIT 38.7 % (36.0-48.0); HEMOGLOBIN 12.3 g/dL (12.0-16.0); LYMPHOCYTES# 1.9 X 10^3uL (0.8-3.8); MEAN CELL VOLUME 82.6 fL (80.0-100.0); MEAN CORPUS. HGB CONCENTRATION 31.7 g/dL (32.0-36.0); MEAN CORPUSCULAR HEMOGLOBIN 26.2 pg (29.0-35.0); MEAN PLATELET VOLUME 7.1 fL (7.4-10.4); MONOCYTES 5.8 % (2.0-10.0); NEUTROPHILS# 13.9 X 10^3uL (2.6-6.7); RED BLOOD COUNT 4.69 X 10^6uL (4.20-6.10); RED CELL DISTRIBUTION WIDTH 14.5 % (11.5-14.5); WHITE BLOOD COUNT 16.9 X 10^3uL (3.9-10.7)
[2017-04-05 06:34] LABS: BLOOD UREA NITROGEN 27 mg/dL (7-17); CHLORIDE 102 mmol/L (98-107); CREATININE 0.5 mg/dL (0.5-1.0); EST GLOMERULAR FILTRATION RATE > 60 mL/min; GLUCOSE 76 mg/dL (70-100); POTASSIUM 4.6 mmol/L (3.5-5.1); SODIUM 135 mmol/L (137-145)
[2017-04-05 07:39] LABS: NEUTROPHILS 82.8 % (54.0-75.0); PLATELET COUNT 474 X 10^3uL (130-440)
[2017-04-05] MEDS: DICLOFENAC 1% GEL 100 APP/100 GM TUBE TOPICAL SCH ×3 (09:43→20:44)
[2017-04-05] MEDS: AMITRIP TOPICAL SCH ×3 (09:43→20:44)
[2017-04-05] MEDS: KETAMINE TOPICAL SCH ×3 (09:43→20:44)
[2017-04-05] MEDS: [UNRECOGNIZED DRUG - OTHER] TOPICAL SCH ×3 (09:43→20:44)
[2017-04-05] MEDS: ENOXAPARIN SODIUM 40 MG/0.4 ML SYR SUBCUT SCH (09:44)
[2017-04-05] MEDS: POTASSIUM CHLORIDE 20 MEQ/15 ML UDC PO SCH (09:44)
[2017-04-05] MEDS: CHOLECALCIFEROL 1,000 UNIT CAPSULE PO SCH (09:45)
[2017-04-05] MEDS: DAPSONE 25 MG TABLET PO SCH (09:45)
[2017-04-05] MEDS: predniSONE 10 MG TABLET PO SCH (09:46)
[2017-04-05] MEDS: traMADol HCL 50 MG TABLET PO SCH ×3 (09:46→21:01)
[2017-04-05] MEDS: PRENATAL VIT/FE FUMARATE/FA 1 TAB TABLET PO SCH (09:47)
[2017-04-05] MEDS: COLCHICINE 0.6 MG TABLET PO SCH (09:47)
[2017-04-05] MEDS: FERROUS SULFATE 325 MG TABLET PO SCH (09:47)
[2017-04-05] MEDS: COLLAGENASE OINT 30 APP/30 GM TUBE TOPICAL SCH (09:48)
[2017-04-05] MEDS ORDERED: LIDOCAINE HCL/PF 4% 5 ML AMP TOPICAL PRN (15:24)
[2017-04-05] MEDS ORDERED: LIDOCAINE HCL/PF 4% 5 ML AMP TOPICAL ONE (15:27)
[2017-04-05] MEDS: MIRTAZAPINE 15 MG TAB PO SCH (21:01)
[2017-04-06] MEDS: traMADol HCL 50 MG TABLET PO SCH ×3 (09:39→21:42)
[2017-04-06] MEDS: COLCHICINE 0.6 MG TABLET PO SCH (09:39)
[2017-04-06] MEDS: predniSONE 10 MG TABLET PO SCH (09:40)
[2017-04-06] MEDS: FERROUS SULFATE 325 MG TABLET PO SCH (09:40)
[2017-04-06] MEDS: CHOLECALCIFEROL 1,000 UNIT CAPSULE PO SCH (09:41)
[2017-04-06] MEDS: DAPSONE 25 MG TABLET PO SCH (09:42)
[2017-04-06] MEDS: POTASSIUM CHLORIDE 20 MEQ/15 ML UDC PO SCH (09:43)
[2017-04-06] MEDS: ENOXAPARIN SODIUM 40 MG/0.4 ML SYR SUBCUT SCH (09:43)
[2017-04-06] MEDS: PRENATAL VIT/FE FUMARATE/FA 1 TAB TABLET PO SCH (09:45)
[2017-04-06] MEDS: AMITRIP TOPICAL SCH ×3 (11:00→20:34)
[2017-04-06] MEDS: DICLOFENAC 1% GEL 100 APP/100 GM TUBE TOPICAL SCH ×3 (11:00→20:34)
[2017-04-06] MEDS: [UNRECOGNIZED DRUG - OTHER] TOPICAL SCH ×3 (11:00→20:34)
[2017-04-06] MEDS: KETAMINE TOPICAL SCH ×3 (11:00→20:34)
[2017-04-06] MEDS: COLLAGENASE OINT 30 APP/30 GM TUBE TOPICAL SCH (11:00)
[2017-04-06] MEDS: MIRTAZAPINE 15 MG TAB PO SCH (20:37)
[2017-04-07 06:40] VITALS: BP 146/74; PULSE 78; RESP 14; TEMP 97.3; O2SAT 88
[2017-04-07] MEDS: DAPSONE 25 MG TABLET PO SCH (08:47)
[2017-04-07] MEDS: CHOLECALCIFEROL 1,000 UNIT CAPSULE PO SCH (08:48)
[2017-04-07] MEDS: PRENATAL VIT/FE FUMARATE/FA 1 TAB TABLET PO SCH (08:48)
[2017-04-07] MEDS: FERROUS SULFATE 325 MG TABLET PO SCH (08:48)
[2017-04-07] MEDS: COLCHICINE 0.6 MG TABLET PO SCH (08:49)
[2017-04-07] MEDS: POTASSIUM CHLORIDE 20 MEQ/15 ML UDC PO SCH (08:50)
[2017-04-07] MEDS: predniSONE 10 MG TABLET PO SCH (08:50)
[2017-04-07] MEDS: ENOXAPARIN SODIUM 40 MG/0.4 ML SYR SUBCUT SCH (08:50)
[2017-04-07] MEDS: DICLOFENAC 1% GEL 100 APP/100 GM TUBE TOPICAL SCH (08:51)
[2017-04-07] MEDS: KETAMINE TOPICAL SCH (08:51)
[2017-04-07] MEDS: COLLAGENASE OINT 30 APP/30 GM TUBE TOPICAL SCH (08:51)
[2017-04-07] MEDS: AMITRIP TOPICAL SCH (08:51)
[2017-04-07] MEDS: [UNRECOGNIZED DRUG - OTHER] TOPICAL SCH (08:51)
[2017-04-07] MEDS: traMADol HCL 50 MG TABLET PO SCH (09:05)
--- NOTE | 2017-04-07 09:05 | PROGRESS NOTE: IM APSO ---
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 Current Visit: Yes (3) Decubitus ulcer of coccyx, stage 2 Status: Chronic Assessment and plan: dressed and trying to minimize pressure with position changes and nutrition, medihoney alginate, orders to home health (reviewed with Gabriela) Current Visit: Yes (4) Anemia in chronic illness Status: Chronic Current Visit: No (5) Axonal sensorimotor neuropathy Status: Chronic Current Visit: No (6) Celiac disease Status: Chronic Current Visit: No (7) Rheumatoid arthritis Status: Chronic Assessment and plan: uncontrolled with markedly elevated CCP and vasculitis related ulcerations, Dapsone when family can collect, colchicine and steroids Current Visit: No (8) Allodynia Status: Chronic Assessment and plan: from axonal vasculitis related dz, starting Ketamine topically, on Remeron, and have requested clinical pharm to review care and offer additional options Current Visit: Yes - Time Spent With Patient Total time spent with greater than 50% in coordination of care (as documented) at patient's floor/unit and/or counseling patient: Greater than 35 minutes Estimated anticipated discharge: Uncertain. IM: PN Subjective General: fatigue, pain (improved control with diclofenac and ketamine), no fever , no chills Cardiovascular: no chest pain Respiratory: no cough Gastrointestinal: no abdominal pain Musculoskeletal: weakness (generalized) Integumentary: sore spot (her right calf ulceration remains very painful), wound (left foot, right calf, and coccyx) IM: PN Objective Exam - I&O/Vital Signs I&O: Intake & Output 04/06/17 04/07/17 04/07/17 21:59 05:59 13:59 Intake Total 1200 100 Output Total 800 1150 Balance 400 -1050 Weight 50 kg Intake: Oral 1200 100 Output: Urine 800 1150 Other: Urine Appearance Clear Clear Urine Color Straw Straw Voiding Method Toilet Toilet # Voids 1 2 Vital Signs: Last Vital Signs Temp 36.3 C L 04/07/17 06:39 Pulse 78 04/07/17 06:39 Resp 14 04/07/17 06:39 BP 146/74 04/07/17 06:39 Pulse Ox 88 L 04/07/17 06:39 Oxygen Flow Rate 88 Oxygen Delivery Method Room Air - Constitutional General appearance: Present: thin - ENT ENT exam: Present: mucous membranes moist - Respiratory Respiratory exam: Present: clear - Cardiovascular Cardiovascular exam: Present: RRR. Absent: systolic murmur - Skin Skin exam: Present: other (she has 2 ulcerations on the coccyx, 0.5 cm and 1 cm in diameter. These are much improved according to the staff. She also has approximately 2 x 5 cm ulceration on the right calf that is extre. The eschar over this is softening and now covers only about one third of the wound. She also has a subcentimeter scab on the left foot and left ma.) - Lab Labs: Laboratory Last Values WBC 16.9 X 10^3uL (3.9-10.7) H 04/05/17 05:45 RBC 4.69 X 10^6uL (4.20-6.10) 04/05/17 05:45 Hgb 12.3 g/dL (12.0-16.0) 04/05/17 05:45 Hct 38.7 % (36.0-48.0) 04/05/17 05:45 MCV 82.6 fL (80.0-100.0) 04/05/17 05:45 MCH 26.2 pg (29.0-35.0) L 04/05/17 05:45 MCHC 31.7 g/dL (32.0-36.0) L 04/05/17 05:45 RDW 14.5 % (11.5-14.5) 04/05/17 05:45 Plt Count 474 X 10^3uL (130-440) H 04/05/17 05:45 MPV 7.1 fL (7.4-10.4) L 04/05/17 05:45 Neutrophils % 82.8 % (54.0-75.0) H 04/05/17 05:45 Lymphocytes % 11.0 % (20.0-40.0) L 04/05/17 05:45 Eosinophils % 0.3 % (0.0-6.0) 04/05/17 05:45 Basophils % 0.1 % (0.0-2.0) 04/05/17 05:45 Neutrophils # 13.9 X 10^3uL (2.6-6.7) H 04/05/17 05:45 Lymphocytes # 1.9 X 10^3uL (0.8-3.8) 04/05/17 05:45 Monocytes 5.8 % (2.0-10.0) 04/05/17 05:45 Monocytes # 1.0 X 10^3uL (0.2-1.0) 04/05/17 05:45 Eosinophils # 0.1 X 10^3uL (0.0-0.4) 04/05/17 05:45 Basophils # 0.0 X 10^3uL (0.0-0.1) 04/05/17 05:45 Sodium 135 mmol/L (137-145) L 04/05/17 05:45 Potassium 4.6 mmol/L (3.5-5.1) 04/05/17 05:45 Chloride 102 mmol/L (98-107) 04/05/17 05:45 Carbon Dioxide 26 mmol/L (22-30) 04/05/17 05:45 BUN 27 mg/dL (7-17) H 04/05/17 05:45 Creatinine 0.5 mg/dL (0.5-1.0) 04/05/17 05:45 GFR Calculation > 60 mL/min 04/05/17 05:45 Glucose 76 mg/dL (70-100) 04/05/17 05:45 Calcium 8.0 mg/dL (8.4-10.2) L 04/05/17 05:45 Total Bilirubin 0.3 mg/dL (0.2-1.3) 04/01/17 06:00 Direct Bilirubin 0.0 mg/dL (0.0-0.4) 04/01/17 06:00 AST 26 U/L (14-36) 04/01/17 06:00 ALT 37 U/L (9-52) 04/01/17 06:00 Alkaline Phosphatase 39 U/L (38-126) 04/01/17 06:00 C-Reactive Protein 5.4 mg/L (<10.0) 04/03/17 06:00 Total Protein 5.5 g/dL (6.3-8.2) L 04/01/17 06:00 Albumin 2.7 g/dL (3.5-5.0) L 04/01/17 06:00 Prealbumin 26.8 mg/dL (17.6-36.0) 04/05/17 05:45 Urine Color Yellow 03/31/17 23:30 Urine Appearance Clear 03/31/17 23:30 Urine pH 7.0 (5-7) 03/31/17 23:30 Ur Specific Benton 1.015 (0.001-1.035) 03/31/17 23:30 Urine Protein Negative (NEG - TRACE) 03/31/17 23:30 Urine Ketones Negative (NEGATIVE) 03/31/17 23:30 Urine Blood Negative (NEGATIVE) 03/31/17 23:30 Urine Nitrate Negative (NEGATIVE) 03/31/17 23: Urine Bilirubin Negative (NEGATIVE) 03/31/17 23: Urine Urobilinogen 0.2mg/dl (normal) (NEG-1mg/dL) 03/31/17 23:30 Ur Leukocyte Esterase 25 wbc/ul (1+) (NEGATIVE) A 03/31/17 23:30 Urine RBC None seen (0-5/hpf) 03/31/17 23:30 Urine WBC 0-4/hpf (0-4/hpf) 03/31/17 23:30 Ur Squamous Epith Cells 0-5/hpf (<= 15/hpf) 03/31/17 23:30 Urine Bacteria <10 organisms/hpf (<10/hpf) 03/31/17 23:30 Urine Mucus None seen (Up to 25%) 03/31/17 23:30 Urine Glucose Normal (NEGATIVE) 03/31/17 23:30
--- NOTE | 2017-04-07 09:13 | DC SUMMARY: IM Note ---
Discharge Summary: IM/Peds Provider: Date of Admission: 03/31/17 Admitting Provider: RICK HADDAD Attending Provider: RICK HADDAD Discharging Provider: RICK HADDAD Primary Care Provider: Discharge Date: 04/07/17 Consults: 03/31/17 13:16 Nutrition/Dietary Consult [CONS] Routine Reason: Swingbed Admission Protocol - Diagnosis (1) Protein calorie malnutrition Status: Chronic (2) Vasculitis limited to skin Status: Acute (3) Decubitus ulcer of coccyx, stage 2 Status: Chronic (4) Anemia in chronic illness Status: Chronic (5) Axonal sensorimotor neuropathy Status: Chronic (6) Celiac disease Status: Chronic (7) Rheumatoid arthritis Status: Chronic (8) Allodynia Status: Chronic - Time Spent with Patient Total time spent providing and/or coordinating discharge services: Discharge - Patient/Caregiver Discharge Instructions Activity Level: as tolerated by patient Diet: regular, encourage Ensure with Whey protein added Overall discharge status: patient is progressing back to baseline Home Medications: Colchicine [Colcrys*] 0.6 mg PO DAILY #30 tablet Colchicine [Colcrys*] 0.6 mg PO DAILY #30 tablet Dapsone [Dapsone*] 150 mg PO DAILY #180 tablet Dapsone [Dapsone*] 150 mg PO DAILY #180 tablet Mirtazapine [Mirtazapine*] 30 mg PO HS #30 tablet Mirtazapine [Mirtazapine*] 30 mg PO HS #60 tablet Collagenase Oint [Santyl Oint*] 1 kylee TOPICAL PRN PRN #1 tube PRN Reason: WOUND CARE Collagenase Oint [Santyl Oint*] 1 kylee TOPICAL DAILY #1 tube Lidocaine HCl/Pf 4% [Xylocaine 4%*] 5 ml TOPICAL PRN PRN #30 amp PRN Reason: wound cleaning/dressing change Lidocaine HCl/Pf 4% [Xylocaine 4%*] 5 ml TOPICAL PRN PRN #30 amp PRN Reason: WOUND CARE Disposition: HOME, SELF-CARE Discharge Summary Data - Medication History Medication History: Home Medications Cholecalciferol [Vitamin D*] 1,000 unit PO DAILY 03/28/17 Diclofenac 1% Gel [Voltaren Top Gel 1%*] 1 gm TOPICAL QID PRN 03/28/17 Gabapentin [Neurontin*] 300 mg PO HS 03/28/17 Melatonin [Melatonin*] 3 mg PO HS 03/28/17 Potassium Chloride ER [K-Dur*] 1 tab PO DAILY 03/28/17 predniSONE [Deltasone*] 7.5 mg PO DAILY 03/28/17 traMADol HCL [Ultram*] 50 mg PO Q6H PRN 03/28/17 Colchicine [Colcrys*] 0.6 mg PO DAILY 03/31/17 Collagenase Oint [Santyl Oint*] 1 kylee TOPICAL PRN PRN 03/31/17 Dapsone [Dapsone*] 150 mg PO DAILY 03/31/17 Enoxaparin Sodium [LOVENOX 40mg/0.4mL*] 40 mg SUBCUT DAILY 03/31/17 Fentanyl [Sublimaze*] 12.5 mcg IV Q4H PRN 03/31/17 Ferrous Sulfate [Ferrous Sulfate*] 1 tab PO DAILY 03/31/17 Lidocaine HCl 1% [Xylocaine 1%*] 5 mg SUBCUT DIRECTED 03/31/17 Lidocaine HCl/Pf 4% [Xylocaine 4%*] 5 ml TOPICAL PRN PRN 03/31/17 Methylprednisolone Sod Succ/Pf [Solu-Medrol 1,000 mg Vial] 1,000 mg IV DAILY 04/12 Mirtazapine [Mirtazapine*] 30 mg PO HS 03/31/17 Non-Formulary Medication 1 kylee TOPICAL TID 03/31/17 Vit/Fe Fumarate/FA [ Rx*] 1 tab PO DAILY 03/31/17 predniSONE [Deltasone*] 20 mg PO DAILY 03/31/17 Inpatient Medications 03/31/17 13:15 Magnesium Hydroxide [Milk of Magnesia] 30 ml PO DAILY PRN 03/31/17 13:22 Fentanyl [Sublimaze] 12.5 mcg IV Q4H PRN 03/31/17 15:00 Diclofenac 1% Gel [Voltaren Gel 1%] 1 kylee TOPICAL TID 03/31/17 21:00 Mirtazapine [Remeron] 30 mg PO HS 04/01/17 09:00 Cholecalciferol [Vitamin D3] 2,000 unit PO DAILY Colchicine [Colcrys] 0.6 mg PO DAILY Collagenase Oint [Santyl Oint] 1 kylee TOPICAL DAILY Dapsone 150 mg PO DAILY Enoxaparin Sodium [Lovenox] 40 mg SUBCUT DAILY Ferrous Sulfate 325 mg PO DAILY Potassium Chloride [KCl Soln] 20 meq PO DAILY Vit/Fe Fumarate/FA [ Rx 1] 1 tab PO DAILY 04/03/17 12:00 Non-Formulary Medication 1 TOPICAL TID 04/03/17 22:00 traMADol HCL [Ultram] 50 mg PO 1000,1400,2200 04/04/17 09:00 predniSONE [Deltasone] 30 mg PO DAILY 04/05/17 15:24 Lidocaine HCl/Pf 4% [Xylocaine 4%] 5 ml TOPICAL PRN PRN Procedures and tests throughout hospitalization: Completed Lab Orders 03/31/17 23:30 UA W/ MICRO -CULTURE IF IND [URINE] Routine 04/01/17 06:00 BASIC METABOLIC PANEL [CHEM] AMDRAW CBC AUTO DIF, MDIF/RMOR IF IND [HEM] AMDRAW HEPATIC PANEL [CHEM] AMDRAW 04/03/17 06:00 BMP [BASIC METABOLIC PANEL] [CHEM] AMDRAW CBC AUTO DIF, MDIF/RMOR IF IND [HEM] AMDRAW crp arthritis [C-REACTIVE PROTEIN] [CHEM] AMDRAW 04/05/17 05:45 BASIC METABOLIC PANEL [CHEM] AMDRAW CBC AUTO DIF, MDIF/RMOR IF IND [HEM] AMDRAW PREALBUMIN [CHEM] AMDRAW Pending Orders 03/31/17 13:15 Activity: Ambulate with Assist TID Cleanse minor skin tears w/NS DAILY Cleanse minor skin tears w/NS PRN Obtain weight 0600 Resuscitation Status Routine Titrate Oxygen TITRATE TO >90% Vital Signs QSHIFT VS Wedge cushion for positioning PRN Magnesium Hydroxide [Milk of Magnesia] 30 ml PO DAILY PRN 03/31/17 13:16 Admit: Swing Bed Routine Pediatric Clinical Dietician Consult [CM] Routine 03/31/17 13:17 Occupation Therapy Eval and Treat [OT] Routine 03/31/17 13:22 Fentanyl [Sublimaze] 12.5 mcg IV Q4H PRN 03/31/17 15:00 Diclofenac 1% Gel [Voltaren Gel 1%] 1 kylee TOPICAL TID 03/31/17 16:35 Miscellaneous Care Order DAILY 03/31/17 17:16 Physical Therapy Plan of Care [PT] Routine 03/31/17 21:00 Mirtazapine [Remeron] 30 mg PO HS 04/01/17 09:00 Cholecalciferol [Vitamin D3] 2,000 unit PO DAILY Colchicine [Colcrys] 0.6 mg PO DAILY Collagenase Oint [Santyl Oint] 1 kylee TOPICAL DAILY Dapsone 150 mg PO DAILY Enoxaparin Sodium [Lovenox] 40 mg SUBCUT DAILY Ferrous Sulfate 325 mg PO DAILY Potassium Chloride [KCl Soln] 20 meq PO DAILY Vit/Fe Fumarate/FA [ Rx 1] 1 tab PO DAILY 04/01/17 Lunch Regular [DIET] 04/03/17 09:42 Arginade Extra Supplement BID Ensure Plus Supplement DAILY 04/03/17 12:00 Non-Formulary Medication 1 TOPICAL TID 04/03/17 22:00 traMADol HCL [Ultram] 50 mg PO 1000,1400,2200 04/04/17 09:00 predniSONE [Deltasone] 30 mg PO DAILY 04/05/17 15:24 Lidocaine HCl/Pf 4% [Xylocaine 4%] 5 ml TOPICAL PRN PRN IM: Discharge Physical Exam - I&O/Vital Signs I&O: Intake & Output 04/06/17 04/07/17 04/07/17 21:59 05:59 13:59 Intake Total 1200 100 Output Total 800 1150 Balance 400 -1050 Weight 50 kg Intake: Oral 1200 100 Output: Urine 800 1150 Other: Urine Appearance Clear Clear Urine Color Straw Straw Voiding Method Toilet Toilet # Voids 1 2 Vital Signs: Last Vital Signs Temp 36.3 C L 04/07/17 06:39 Pulse 78 04/07/17 06:39 Resp 14 04/07/17 06:39 BP 146/74 04/07/17 06:39 Pulse Ox 88 L 04/07/17 06:39 Oxygen Flow Rate 88 Oxygen Delivery Method Room Air - Constitutional General appearance: Present: thin - ENT ENT exam: Present: mucous membranes moist - Respiratory Respiratory exam: Present: clear - Cardiovascular Cardiovascular exam: Present: RRR. Absent: systolic murmur - Skin Skin exam: Present: other (she has 2 ulcerations on the coccyx, 0.5 cm and 1 cm in diameter. These are much improved according to the staff. She also has approximately 2 x 5 cm ulceration on the right calf that is extre. The eschar over this is softening and now covers only about one third of the wound. She also has a subcentimeter scab on the left foot and left ma.)
== END 2017-04-07 09:13 | disposition home or self-care (01) | DRG 948 ==
LOC: IN 13:30
PROVIDERS: ADMIT Hospitalist; ATTEND Hospitalist
DX: R53.81 Other malaise (principal); E46 Unspecified protein-calorie malnutrition; L89.152 Pressure ulcer of sacral region, stage 2; G60.0 Hereditary motor and sensory neuropathy; L95.8 Other vasculitis limited to the skin; K90.0 Celiac disease; R63.4 Abnormal weight loss; M06.89 Other specified rheumatoid arthritis, multiple sites; D63.8 Anemia in other chronic diseases classified elsewhere; F03.90 Unspecified dementia, unspecified severity, without behavioral disturbance, psychotic disturbance, mood disturbance, and anxiety; F32.89 Other specified depressive episodes; M35.00 Sjogren syndrome, unspecified; K21.9 Gastro-esophageal reflux disease without esophagitis; E87.6 Hypokalemia; M85.89 Other specified disorders of bone density and structure, multiple sites; G47.00 Insomnia, unspecified; N81.10 Cystocele, unspecified; H04.123 Dry eye syndrome of bilateral lacrimal glands; Z79.52 Long term (current) use of systemic steroids; Z79.899 Other long term (current) drug therapy
CPT/HCPCS: 36415; 80048; 80076; 81001; 84134; 85025; 86140; J1650; J7512

== ENCOUNTER 2017-04-08 19:43 | Emergency (ER) | payer MEDICARE ==
[2017-04-08] MEDS ORDERED: KETOROLAC TROMETHAMINE 30 MG/ML VIAL ONE (20:54)
[2017-04-08 21:12] LABS: BLOOD UREA NITROGEN 34 mg/dL (7-17); CALCIUM 8.5 mg/dL (8.4-10.2); CHLORIDE 102 mmol/L (98-107); CREATININE 0.8 mg/dL (0.5-1.0); EST GLOMERULAR FILTRATION RATE > 60 mL/min; GLUCOSE 102 mg/dL (70-100); MAGNESIUM 2.3 mg/dL (1.6-2.3); POTASSIUM 4.4 mmol/L (3.5-5.1); SODIUM 137 mmol/L (137-145)
[2017-04-08 21:22] LABS: HEMATOCRIT 36.9 % (36.0-48.0); MEAN CELL VOLUME 82.8 fL (80.0-100.0); MEAN CORPUS. HGB CONCENTRATION 32.5 g/dL (32.0-36.0); MEAN CORPUSCULAR HEMOGLOBIN 26.9 pg (29.0-35.0); MEAN PLATELET VOLUME 7.7 fL (7.4-10.4); PLATELET COUNT 408 X 10^3uL (130-440); RED BLOOD COUNT 4.45 X 10^6uL (4.20-6.10); WHITE BLOOD COUNT 15.1 X 10^3uL (3.9-10.7)
[2017-04-08 21:23] LABS: BAND% (Manual) 5 % (0.0-1.0); LYMPHOCYTE % (Manual) 8 % (20.0-40.0); METAMYELOCYTE % (Manual) 2 % (0); MONOCYTE % (Manual) 8 % (2.0-10.0); NEUTROPHIL % (Manual) 77 % (54.0-75.0); PLATELET ESTIMATE ADEQUATE
[2017-04-08] MEDS ORDERED: MORPHINE SULFATE 2 MG/ML SYR ONE (21:48)
--- NOTE | 2017-04-08 22:17 | ER NURSING DOCUMENTATION ---
Nurse's Notes [facility] Name:Yayo Prince Age:76 yrs Sex:Female :1940 Arrival Date:04/08/2017 Time:19:43 Bed3 Private MD:Compa Elliott Diagnosis:Altered Mental Status Presentation: 04/08 20:20 Presenting complaint: Daughter states: patient has been acting unusual since discharge sj from hospital yesterday - didn't recognize her home. This afternoon acting paranoid, agitated, angry, scared of food - thinking she was being poisoned, irrational thinking and cursing which would never normally do. Tremulous with agitation. Tramadol was increased during hospitalization and many new medications were added to her regimen. Transition of care: Home. Notified ED Physician of patient's arrival and CC Aquilino Dsouza notified. 20:20 Acuity: MARTHA 3 sj 20:20 Method Of Arrival: Private Vehicle Triage Assessment: 20:49 General: Appears comfortable, malnourished, well groomed, Behavior is cooperative, sj drowsy. Pain: Complains of pain in bilateral lower legs. Neuro: Level of Consciousness is awake, obeys commands, Oriented to person, place, time, event. Cardiovascular: Capillary refill < 3 seconds. Respiratory: Respiratory effort is even, unlabored, Respiratory pattern is regular. Historical: - Allergies: Acetaminophen; antibiotic?; - Home Meds: 1. Vitamin D Oral 2. tramadol 50 mg oral tab 1 tab every 6 hours as needed 3. diclofenac sodium topical 4. Potassium Chloride Oral 5. gabapentin 100 mg oral cap 3 caps 3 times per day 6. tramadol 50 mg oral tab 1 tab Q8H as needed 7. prednisone 5 mg oral tab Unknown once daily 8. folic acid 1 mg oral tab 1 tab once daily 9. prednisone 2.5 mg oral tab 1 tab every 2 days 10. melatonin 2.5 mg oral chew 11. Klor-Con M20 20 mEq oral TbTQ 1 tab once daily 12. mirtazapine 15 mg oral tab 1 tab once daily 13. magnesium oxide oral powd 14. Vitamin oral tab once daily 15. collagenase clos hist. (bulk) miscellaneous powd 16. tramadol 50 mg oral TbDL Unknown 17. cholecalciferol (vitamin D3) 2,000 unit oral cap 18. Voltaren Oral 19. Lidoderm 5 %(700 mg/patch) topical ptmd 20. colchicine 0.6 mg oral tab once daily 21. dapsone 100 mg oral tab once daily 22. colchicine 0.6 mg oral tab - PMHx: RHEUMATOID ARTHRITIS; DEPRESSION; anorexia; gout; vasculitis; peripheral neuropathy; - PSHx: Hysterectomy; Appendectomy; BLADDER SUSPENSION; Tonsillectomy; skin cancer removal from leg; left hip surgery; - Tetanus: < 10 years. - Ebola Screening: : Patient negative for fever greater than or equal to 101.5 degrees Fahrenheit, and additional compatible Ebola Virus Disease symptoms. Patient denies exposure to infectious person. Patient denies travel to an Ebola-affected area in the 21 days before illness onset. No symptoms or risks identified at this time. . - Immunization history: Pneumococcal vaccine is up to date, Flu Vaccine < 1 year. - Social history: Smoking status: Patient states was never smoker of tobacco. Patient/guardian denies using alcohol, marijuana. Screenin:52 Infectious Disease Risk None. Abuse screen: Denies threats or abuse. Denies injuries sj from another. Nutritional screening: underweight. Assessment: 20:52 Neuro: answers all questions appropriately. sj Vital Signs: 19:57 BP 136 / 68 RA Supine (auto/reg); Pulse 88 RA; Resp 20 S; Temp 98.1(O); Pulse Ox 83% on em3 R/A; 20:00 Pulse 82; Pulse Ox 92% on 3 lpm NC; em3 20:51 BP 131 / 71; Pulse 88; Pulse Ox 91% on 3 lpm NC; sj 21:07 BP 131 / 67; Pulse 91; Pulse Ox 91% on 3 lpm NC; sj 21:47 BP 125 / 65; Pulse 80; Resp 22; Pulse Ox 90% on 3 lpm NC; Pain 9/10; sj 22:15 BP 115 / 58; Pulse 79; Pulse Ox 90% on 3 lpm NC; sj ED Course: 19:44 Patient arrived in ED. ma1 19:44 Compa Elliott MD is Private Physician. ma1 19:45 Binh Rolle MD is Attending Physician. jm 19:57 Oxygen Oxygen administration via nasal cannula @ 3L/min. em3 20:02 Valuables Remains with patient Patient has correct armband on for positive em3 identification. Bed in low position. Call light in reach. Side rails up X2. 20:20 Bharati Crisostomo is Primary Nurse. sj 20:23 Triage completed. sj 20:30 Notified ED Physician of patient's arrival and chief complaint. Dr. Rolle notified. sj 20:40 Inserted peripheral IV: 20 gauge in left forearm and blood collected. sj 21:53 Compa Elliott MD is Referral Physician. Administered Medications: 20:40 Drug: NS 0.9% 500 ml; Route: IV; Rate: bolus; Site: left forearm; sj 21:46 Follow up: IV Status: Completed infusion; IV Intake: 1000ml sj 20:45 Drug: Toradol 30 mg; Route: IVP; Site: left forearm; sj 21:47 Follow up: Response: Pain is unchanged, physician notified sj 21:45 Drug: morphine 2 mg; Route: IVP; Site: left forearm; sj 22:15 Follow up: Response: Pain is decreased sj Intake: 21:46 IV: 1000ml; Total: 1000ml. Outcome: 21:53 Discharge ordered by . 22:16 Patient left the ED. sj Signatures: Binh Rolle MD MD jm Meiklejohn, Eric em3 King, Melody mk4 Bharati Crisostomo, Talia rudolph1
--- NOTE | 2017-04-08 22:17 | ER PHYSICIAN DOCUMENTATION ---
Physician Documentation [facility] Name:Yayo Prince Age:76 yrs Sex:Female :1940 Arrival Date:04/08/2017 Time:19:43 Bed3 Private MD:Compa Elliott ED, John Disposition: 04/08/17 21:53 Discharged to Home/Self Care. Impression: Altered Mental Status. - Condition is Good. - Discharge Instructions: ALTERED LOC. - Medical Reconciliation form form. - Follow up: Compa Elliott MD; When: monday ; Reason: Recheck today's complaints, Continuance of care. - Problem is new. - Symptoms have improved. HPI: 04/08 21:13 This 76 yrs old Female presents to ER via Private Vehicle with complaints of jm General Weakness. 21:13 The patient presents with confusion. Onset: The symptom(s)/episode began/occurred just jm prior to arrival. Possible causes: unknown, possible medication reaction. . Associated signs and symptoms: Pertinent negatives: abdominal pain, diarrhea, dizziness, headache, lightheadedness, nausea, shortness of breath, vomiting, weakness. Current symptoms: In the emergency department the patient's symptoms have improved, markedly, is less confused, per family. . The patient has not experienced similar symptoms in the past. The patient has been recently seen at the [facility] Emergency Department, this week, for unrelated complaints, Pt was admitted for vasculitis and placed on dapsone and released yesterday. . Today she was at dinner and became confused and could figure out what to do with her brussels sprouts. She started getting agitated and swearing. She was very confused per family, so they brought her in. Now, they say she is back to her baseline. They wonder about drug interactions. They say her legs are much better and are not worried about them at all. No falls. Pt denies any sx except for chronic pain. . Historical: - Allergies: Acetaminophen; antibiotic?; - Home Meds: 1. Vitamin D Oral 2. tramadol 50 mg oral tab 1 tab every 6 hours as needed 3. diclofenac sodium topical 4. Potassium Chloride Oral 5. gabapentin 100 mg oral cap 3 caps 3 times per day 6. tramadol 50 mg oral tab 1 tab Q8H as needed 7. prednisone 5 mg oral tab Unknown once daily 8. folic acid 1 mg oral tab 1 tab once daily 9. prednisone 2.5 mg oral tab 1 tab every 2 days 10. melatonin 2.5 mg oral chew 11. Klor-Con M20 20 mEq oral TbTQ 1 tab once daily 12. mirtazapine 15 mg oral tab 1 tab once daily 13. magnesium oxide oral powd 14. Vitamin oral tab once daily 15. collagenase clos hist. (bulk) miscellaneous powd 16. tramadol 50 mg oral TbDL Unknown 17. cholecalciferol (vitamin D3) 2,000 unit oral cap 18. Voltaren Oral 19. Lidoderm 5 %(700 mg/patch) topical ptmd 20. colchicine 0.6 mg oral tab once daily 21. dapsone 100 mg oral tab once daily 22. colchicine 0.6 mg oral tab - PMHx: RHEUMATOID ARTHRITIS; DEPRESSION; anorexia; gout; vasculitis; peripheral neuropathy; - PSHx: Hysterectomy; Appendectomy; BLADDER SUSPENSION; Tonsillectomy; skin cancer removal from leg; left hip surgery; - Tetanus: < 10 years. - Ebola Screening: : Patient negative for fever greater than or equal to 101.5 degrees Fahrenheit, and additional compatible Ebola Virus Disease symptoms. Patient denies exposure to infectious person. Patient denies travel to an Ebola-affected area in the 21 days before illness onset. No symptoms or risks identified at this time. . - Immunization history: Pneumococcal vaccine is up to date, Flu Vaccine < 1 year. - Social history: Smoking status: Patient states was never smoker of tobacco. Patient/guardian denies using alcohol, marijuana. ROS: 21:18 Constitutional: Negative for fatigue, fever. jm 21:18 Respiratory: Negative for cough, shortness of breath. 21:18 Abdomen/GI: Negative for abdominal pain. 21:18 Neuro: Positive for altered mental status, pt admits to acting different at dinner but can't recall what went wrong. . 21:18 Psych: Negative for anxiety, depression. 21:18 All other systems are negative. Exam: 21:19 Constitutional: The patient appears alert, awake, comfortable. jm 21:19 Eyes: Periorbital structures: appear normal, Conjunctiva: normal. 21:19 ENT: Mouth: is normal, Voice: is normal. 21:19 Neck: Thyroid: appears normal, Trachea: is midline with no obvious abnormalities. 21:19 Cardiovascular: Rate: normal, Rhythm: regular. 21:19 Respiratory: the patient does not display signs of respiratory distress, Respirations: normal, Breath sounds: are normal. 21:19 Abdomen/GI: Bowel sounds: normal, Palpation: abdomen is soft and non-tender. 21:19 : CVA tenderness, is absent, Bladder: is normal. 21:19 Skin: did not look at legs. . 21:19 Neuro: Orientation: is normal, to person, place & time. Mentation: is normal, Memory: is normal, Gait: is steady. 21:19 Psych: Behavior/mood is pleasant, cooperative, Affect is calm. Vital Signs: 19:57 BP 136 / 68 RA Supine (auto/reg); Pulse 88 RA; Resp 20 S; Temp 98.1(O); Pulse Ox 83% on em3 R/A; 20:00 Pulse 82; Pulse Ox 92% on 3 lpm NC; em3 20:51 BP 131 / 71; Pulse 88; Pulse Ox 91% on 3 lpm NC; sj 21:07 BP 131 / 67; Pulse 91; Pulse Ox 91% on 3 lpm NC; sj 21:47 BP 125 / 65; Pulse 80; Resp 22; Pulse Ox 90% on 3 lpm NC; Pain 9/10; sj 22:15 BP 115 / 58; Pulse 79; Pulse Ox 90% on 3 lpm NC; sj MDM: 19:45 Patient medically screened. 04/09 07:13 Differential Diagnosis: electrolyte abnormality, hypoglycemia, pneumonia, volume jm depletion, hypoxia. Data reviewed: vital signs, nurses notes, old medical records, lab test result(s), and as a result, I will discharge patient. Test interpretation: by ED physician or midlevel provider: none. Counseling: I had a detailed discussion with the patient and/or guardian regarding: the historical points, exam findings, and any diagnostic results supporting the discharge/admit diagnosis, lab results, the need for outpatient follow up, with the patient's primary care provider. ED course: Pt is not altered by mine or her family's standards as of now. She is totally with it and has no complaints. Pt was intermittently hypoxic while at [facility] and this seems a bit worse today. She may have had a hypoxic episode that contributed to the AMS during diner tonight. Will will send pt home with a tank and have [facility] arrange for more 02. . 04/08 21:22 Order name: BASIC METABOLIC PANEL; Complete Time: 21:32 EDMS 04/08 21:22 Order name: MAGNESIUM; Complete Time: 21:32 EDMS 04/08 21:23 Order name: CBC W/ MANUAL DIFFERENTIAL; Complete Time: 21:32 EDMS 04/08 20:25 Order name: Iv Saline Lock; Complete Time: 20:55 04/08 20:55 Order name: Oxygen; Complete Time: 20:55 Dispensed Medications: 04/08 20:40 Drug: NS 0.9% 500 ml; Route: IV; Rate: bolus; Site: left forearm; sj 21:46 Follow up: IV Status: Completed infusion; IV Intake: 1000ml 20:45 Drug: Toradol 30 mg; Route: IVP; Site: left forearm; sj 21:47 Follow up: Response: Pain is unchanged, physician notified sj 21:45 Drug: morphine 2 mg; Route: IVP; Site: left forearm; sj 22:15 Follow up: Response: Pain is decreased Signatures: Binh Rolle MD MD jm King, Melody mk4 Janzen, Sarah
== END 2017-04-08 22:17 | disposition home or self-care (01) ==
LOC: ER 19:43
DX: R41.82 Altered mental status, unspecified (principal); R53.1 Weakness; R09.02 Hypoxemia; Z79.899 Other long term (current) drug therapy
CPT/HCPCS: 80048; 83735; 85007; 85027; 96361; 96374; 96375; 99284; J1885; J2270